=== PATIENT | female | born 1960 | race Caucasian/White ===

== ENCOUNTER 2019-09-16 12:55 | Outpatient (CLI) | payer OTHER, SELFPAY ==
--- NOTE | ~2019-09-16 | MM_ITS ---
EXAMINATION: MM screen LT diag RT w octavia HISTORY: Personal history of right breast cancer TECHNIQUE: Additional 3-D tomosynthesis images of were performed and synthetic 2-D images were genera fanny. CAD analysis was submitted and interpreted. COMPARISON: Serial mammogram and Limited right breast ultrasound examinations dating back to 6 BREAST PARENCHYMAL COMPOSITION: There are scattered areas of fibroglandular density. FINDINGS: Surgical clips and associated density are noted posteriorly in the upper outer quadrant of the right breast. There is mild skin thickening on the right. History of right partial mastectomy for breast malignancy. Status post left breast reduction mammoplasty. No interval suspicious mass or new architectural distortion or skin thickening or retraction of eithe r breast is noted otherwise. IMPRESSION: 1. Status post right partial mastectomy for breast cancer 2. No interval significant new mass or architectural distortion or malignant calcification of either breast is identified BI-RADS Category 2: Benign finding(s). Reviewed, dictated and finalized at location A. IMPRESSION: 1. Status post right partial mastectomy for breast cancer 2. No interval significant new mass or architectural distortion or malignant ca lcification of either breast is identified BI-RADS Category 2: Benign finding(s).
== END 2019-09-16 12:56 | disposition home or self-care (01) ==
PROVIDERS: PCP Internal Medicine; Visit Provider Internal Medicine Hematology & Oncology
DX: Z12.31 Encounter for screening mammogram for malignant neoplasm of breast (principal); I26.99 Other pulmonary embolism without acute cor pulmonale; Z85.3 Personal history of malignant neoplasm of breast
CPT/HCPCS: 77063; 77065; 77067

== ENCOUNTER 2019-09-29 11:06 | Outpatient (CLI) | payer OTHER, SELFPAY ==
[2019-09-29 11:20] LABS: Basophils Percent Auto 0.4 % (0.2-1.2); Eosinophils Absolute Auto 0.1 K/mm3 (0-0.3); Eosinophils Percent Auto 1.6 % (0-4.4); Hematocrit 40.7 % (37.0-47.0); Hemoglobin 12.2 g/dL (12.0-15.0); Immature Granulocyte Absolute 0.03 K/mm3 (0.00-0.031); Immature Granulocyte Percent A 0.4 % (0-0.5); Lymphocytes Absolute Auto 1.59 K/mm3 (0.9-3.2); Lymphocytes Percent Auto 21.8 % (18.3-44.2); Mean Corpuscular Hemoglobin 26.1 pg (26-34); Mean Platelet Volume 8.9 fl (7.4-10.4); Monocytes Absolute Auto 0.5 K/mm3 (0.1-0.6); Monocytes Percent Auto 6.7 % (2.6-8.5); Neutrophils Absolute Auto 5.1 K/mm3 (1.3-6.7); Neutrophils Percent Auto 69.1 % (45.5-73.1); Platelet Count Result 319 k/mm3 (150-375); Red Blood Count 4.68 M/mm3 (4.2-5.4); Red Cell Distribution Width 15.6 % (11.5-14.5); White Blood Count 7.3 K/mm3 (4.5-10.0)
[2019-09-29 12:33] LABS: Alanine Aminotransferase 41 U/L (4-35); Alkaline Phosphatase 111 U/L (38-126); Aspartate Amino Transferase 49 U/L (14-36); Bilirubin,Total 0.4 mg/dL (0.2-1.3); Blood Urea Nitrogen 14 mg/dL (7-17); Calcium 8.9 mg/dL (8.4-10.2); Carbon Dioxide 29 mmol/L (22-30); Chloride 104 mmol/L (98-107); Estimated Glomerular Filt Rate 50; Glucose 134 mg/dL (65-105); Potassium 4.1 mmol/L (3.4-5.0); Sodium 141 mmol/L (137-145)
[2019-10-01 05:09] LABS: CA 27.29 20 U/mL (<38)
== END 2019-09-29 11:07 | disposition home or self-care (01) ==
LOC: ANHLAB 11:10
PROVIDERS: PCP Internal Medicine; Visit Provider Internal Medicine Hematology & Oncology
DX: C50.211 Malignant neoplasm of upper-inner quadrant of right female breast (principal); Z17.0 Estrogen receptor positive status [ER+]
CPT/HCPCS: 36415; 80053; 85025; 86300

== ENCOUNTER 2019-10-08 09:05 | Outpatient (CLI) | payer OTHER, SELFPAY ==
--- NOTE | ~2019-10-08 | US_ITS ---
EXAMINATION:US venous doppler LE LT INDICATION:Lower extremity DVT. TECHNIQUE: Multiple grayscale, color flow and Doppler images of the left lower extremity deep venous systems were obtained and reviewed. COMPARISON:No prior studies for comparison. FINDINGS: The common femoral, superficial femoral and popliteal veins demonstrate normal respiratory variation, augmentation and compressibility. Color flow is also seen within the posterior tibial, pe roneal, greater saphenous and profunda veins. IMPRESSION: 1: No lower extremity deep venous thrombosis. Reviewed, dictated and finalized at location A.
== END 2019-10-08 09:06 | disposition home or self-care (01) ==
LOC: ANHIMG 09:11
PROVIDERS: PCP Internal Medicine; Visit Provider Internal Medicine Hematology & Oncology
DX: I82.4Z2 Acute embolism and thrombosis of unspecified deep veins of left distal lower extremity (principal)
CPT/HCPCS: 93971

== ENCOUNTER 2019-10-21 10:33 | Outpatient (CLI) | payer OTHER, SELFPAY ==
--- NOTE | ~2019-10-21 | CT_ITS ---
EXAMINATION: CTA chest PE protocol DATE: 10/21/2019 11:31 INDICATION: Shortness of breath, history of breast cancer, prior pulmonary embolism TECHNIQUE: Computed tomography angiography (CTA) of the chest was performed with 100 mL Omnipaque-350 intravenous contrast timed to evaluate the pulmonary arteries. Coronal maximum intensity projection 3D-reconstructions were created by the technologist. The dose-length product (DLP) was 894.10 mGy-cm. Automated exposure control and iterative reconstruction technique were employed. COMPARISON: 05/14/2019 FINDINGS: The pulmonary arteries are well-opacified. No acute pulmonary embolism is identified. Some small peripheral filling defects are seen in pulmonary arteries of the right lower lobe, consistent w ith resolving emboli. The lungs are free of acute opacities. There is no pleural effusion or pneumoth orax. No pathologically enlarged thoracic lymph nodes are identified. The heart size is normal. Lumpe ctomy changes are noted in the right breast. Skin thickening of the right breast is consistent with r adiation change. The liver is diffusely low in attenuation when compared with the spleen, consistent with hepatic steatosis. Punctate calcifications in an otherwise normal spleen likely represent healed granulomatous disease. The gallbladder is surgically absent. There is mild thoracic spondylosis. IMPRESSION: 1. No acute pulmonary emboli. Small chronic but resolving emboli in the right lower lobe. 2. Diffuse hepatic steatosis. Reviewed, dictated and finalized at location A. IMPRESSION: 1. No acute pulmonary emboli. Small chronic but resolving emboli in the right l ower lobe. 2. Diffuse hepatic steatosis.
== END 2019-10-21 10:34 | disposition home or self-care (01) ==
LOC: ANHIMG 10:43
PROVIDERS: PCP Internal Medicine; Visit Provider Internal Medicine Hematology & Oncology
DX: I26.99 Other pulmonary embolism without acute cor pulmonale (principal); K76.0 Fatty (change of) liver, not elsewhere classified
CPT/HCPCS: 71275; Q9967

== ENCOUNTER 2020-01-02 13:15 | Outpatient (CLI) | payer OTHER, SELFPAY ==
[2020-01-02 13:31] LABS: Basophils Percent Auto 0.5 % (0.2-1.2); Eosinophils Absolute Auto 0.2 K/mm3 (0-0.3); Hematocrit 38.6 % (37.0-47.0); Hemoglobin 12.1 g/dL (12.0-15.0); Immature Granulocyte Absolute 0.02 K/mm3 (0.00-0.031); Immature Granulocyte Percent A 0.2 % (0-0.5); Lymphocytes Absolute Auto 2.03 K/mm3 (0.9-3.2); Lymphocytes Percent Auto 24.3 % (18.3-44.2); Mean Corpuscular HGB Conc 31.3 g/dl (32-36); Mean Corpuscular Hemoglobin 26.7 pg (26-34); Mean Corpuscular Volume 85.2 fl (80-100); Mean Platelet Volume 8.7 fl (7.4-10.4); Monocytes Absolute Auto 0.8 K/mm3 (0.1-0.6); Monocytes Percent Auto 10.1 % (2.6-8.5); Neutrophils Absolute Auto 5.3 K/mm3 (1.3-6.7); Neutrophils Percent Auto 62.9 % (45.5-73.1); Platelet Count Result 327 k/mm3 (150-375); Red Blood Count 4.53 M/mm3 (4.2-5.4); Red Cell Distribution Width 14.8 % (11.5-14.5); White Blood Count 8.4 K/mm3 (4.5-10.0)
[2020-01-02 16:03] LABS: Alanine Aminotransferase 56 U/L (4-35); Alkaline Phosphatase 109 U/L (38-126); Anion Gap 12.4 mmol/L (7-16); Aspartate Amino Transferase 62 U/L (14-36); Bilirubin,Total 0.3 mg/dL (0.2-1.3); Blood Urea Nitrogen 12 mg/dL (7-17); Calcium 8.9 mg/dL (8.4-10.2); Carbon Dioxide 31 mmol/L (22-30); Chloride 101 mmol/L (98-107); Estimated Glomerular Filt Rate 56; Glucose 84 mg/dL (65-105); Potassium 4.4 mmol/L (3.4-5.0); Sodium 140 mmol/L (137-145)
[2020-01-08 13:51] LABS: CA 27.29 19 U/mL (<38)
== END 2020-01-02 13:16 | disposition home or self-care (01) ==
PROVIDERS: PCP Internal Medicine; Visit Provider Internal Medicine Hematology & Oncology
DX: C50.411 Malignant neoplasm of upper-outer quadrant of right female breast (principal); Z17.0 Estrogen receptor positive status [ER+]
CPT/HCPCS: 36415; 80053; 85025; 86300

== ENCOUNTER 2020-04-09 11:44 | Outpatient (CLI) | payer OTHER, SELFPAY ==
[2020-04-09 11:57] LABS: Basophils Percent Auto 0.5 % (0.2-1.2); Eosinophils Absolute Auto 0.2 K/mm3 (0-0.3); Eosinophils Percent Auto 1.9 % (0-4.4); Hematocrit 39.2 % (37.0-47.0); Hemoglobin 12.2 g/dL (12.0-15.0); Immature Granulocyte Absolute 0.03 K/mm3 (0.00-0.031); Immature Granulocyte Percent A 0.4 % (0-0.5); Lymphocytes Absolute Auto 1.69 K/mm3 (0.9-3.2); Lymphocytes Percent Auto 21.8 % (18.3-44.2); Mean Corpuscular HGB Conc 31.1 g/dl (32-36); Mean Corpuscular Hemoglobin 26.8 pg (26-34); Mean Platelet Volume 9.4 fl (7.4-10.4); Monocytes Absolute Auto 0.5 K/mm3 (0.1-0.6); Monocytes Percent Auto 6.3 % (2.6-8.5); Neutrophils Absolute Auto 5.4 K/mm3 (1.3-6.7); Neutrophils Percent Auto 69.1 % (45.5-73.1); Platelet Count Result 306 k/mm3 (150-375); Red Blood Count 4.56 M/mm3 (4.2-5.4); Red Cell Distribution Width 14.9 % (11.5-14.5); White Blood Count 7.8 K/mm3 (4.5-10.0)
[2020-04-09 16:14] LABS: Alanine Aminotransferase 56 U/L (4-35); Albumin Level 3.9 g/dL (3.5-5.1); Alkaline Phosphatase 119 U/L (38-126); Anion Gap 11 mmol/L (8-16); Aspartate Amino Transferase 56 U/L (14-36); Bilirubin,Total 0.4 mg/dL (0.2-1.3); Blood Urea Nitrogen 18 mg/dL (7-17); Carbon Dioxide 29 mmol/L (22-30); Chloride 104 mmol/L (98-107); Estimated Glomerular Filt Rate 56; Glucose 148 mg/dL (65-105); Potassium 4.1 mmol/L (3.4-5.0); Sodium 144 mmol/L (137-145)
[2020-04-15 06:40] LABS: CA 27.29 19 U/mL (<38)
== END 2020-04-09 11:45 | disposition home or self-care (01) ==
LOC: ANHLAB 11:45
PROVIDERS: PCP Internal Medicine; Visit Provider Internal Medicine Hematology & Oncology
DX: C50.411 Malignant neoplasm of upper-outer quadrant of right female breast (principal); Z17.0 Estrogen receptor positive status [ER+]
CPT/HCPCS: 36415; 80053; 85025; 86300

== ENCOUNTER → 2020-04-29 07:38 | Outpatient (CLI) | payer OTHER, SELFPAY ==
--- NOTE | ~2020-04-29 | MMUS_ITS ---
EXAMINATION: MM diagnostic ambrose RT w octavia, US breast RT limited HISTORY: History of right breast cancer TECHNIQUE: Craniocaudal, mediolateral, and mediolateral oblique 3-D tomosynthesis images of the right breast were performed and synthetic 2-D images were generated. CAD analysis was submitted and interp reted. High resolution limited right breast ultrasound was performed. COMPARISON: 09/10/2018, 08/23/2018, 08/22/2017, 08/07/2017 BREAST PARENCHYMAL COMPOSITION: The breasts are almost entirely fatty. FINDINGS: MAMMOGRAPHIC FINDINGS: Lumpectomy changes are present in the upper outer quadrant of the breast. There is an asymmetry in th e far posterior third of the outer breast seen 12 cm from the nipple on the mediolateral oblique view . No suspicious calcification is identified. ULTRASOUND: Dense shadowing is seen at the area of patient's lumpectomy. A 2.8 x 1.0 cm oval, circumscribed, para llel, hypoechoic area at the 12:00 location 3 cm from the nipple appears to represent postoperative c hange. There is a 10 mm x 5 mm oval, circumscribed, parallel, hypoechoic mass at the 12:00 location 1 cm from the nipple which likely reflects a small area of fat necrosis seen on the mammogram. IMPRESSION: 1. Asymmetry in the far posterior third of the outer left breast seen only on the mediolateral obliqu e view. Finding is somewhat more dense than would be expected for normal postoperative change and cou ld reflect residual malignancy. 2. Biopsy is recommended. However, MRI could be performed first to assess for residual malignancy bianca andra postoperative change. BI-RADS category 4, suspicious findings. Reviewed, dictated and finalized at location A. MACHINE OPERATOR IMPRESSION: 1. Asymmetry in the far posterior third of the outer left breast seen only on t he mediolateral oblique view. Finding is somewhat more dense than would be expe cted for normal postoperative change and could reflect residual malignancy. 2. Biopsy is recommended. However, MRI could be performed first to assess for r esidual malignancy versus postoperative change. BI-RADS category 4, suspicious findings.
== END ==
PROVIDERS: PCP Internal Medicine; Visit Provider Nurse Practitioner Adult Health
DX: C50.211 Malignant neoplasm of upper-inner quadrant of right female breast (principal); Z17.0 Estrogen receptor positive status [ER+]; R92.8 Other abnormal and inconclusive findings on diagnostic imaging of breast
CPT/HCPCS: 76642; 77061; 77065; G0279

== ENCOUNTER 2020-07-09 11:17 | Outpatient (CLI) | payer OTHER, SELFPAY ==
[2020-07-09 11:32] LABS: Basophils Percent Auto 0.5 % (0.2-1.2); Eosinophils Absolute Auto 0.1 K/mm3 (0-0.3); Eosinophils Percent Auto 1.7 % (0-4.4); Hematocrit 40.2 % (37.0-47.0); Hemoglobin 12.5 g/dL (12.0-15.0); Immature Granulocyte Absolute 0.03 K/mm3 (0.00-0.031); Immature Granulocyte Percent A 0.4 % (0-0.5); Lymphocytes Absolute Auto 1.62 K/mm3 (0.9-3.2); Lymphocytes Percent Auto 20.2 % (18.3-44.2); Mean Corpuscular HGB Conc 31.1 g/dl (32-36); Mean Corpuscular Hemoglobin 26.8 pg (26-34); Mean Corpuscular Volume 86.1 fl (80-100); Mean Platelet Volume 9.3 fl (7.4-10.4); Monocytes Absolute Auto 0.6 K/mm3 (0.1-0.6); Monocytes Percent Auto 7.9 % (2.6-8.5); Neutrophils Absolute Auto 5.6 K/mm3 (1.3-6.7); Neutrophils Percent Auto 69.3 % (45.5-73.1); Platelet Count Result 343 k/mm3 (150-375); Red Blood Count 4.67 M/mm3 (4.2-5.4); Red Cell Distribution Width 14.6 % (11.5-14.5)
[2020-07-09 13:37] LABS: Alanine Aminotransferase 37 U/L (4-35); Albumin Level 3.9 g/dL (3.5-5.1); Alkaline Phosphatase 106 U/L (38-126); Anion Gap 6 mmol/L (8-16); Aspartate Amino Transferase 45 U/L (14-36); Bilirubin,Total 0.4 mg/dL (0.2-1.3); Blood Urea Nitrogen 13 mg/dL (7-17); Calcium 8.9 mg/dL (8.4-10.2); Carbon Dioxide 30 mmol/L (22-30); Chloride 104 mmol/L (98-107); Estimated Glomerular Filt Rate 56; Glucose 151 mg/dL (65-105); Potassium 4.1 mmol/L (3.4-5.0); Sodium 140 mmol/L (137-145)
[2020-07-14 06:47] LABS: CA 27.29 18 U/mL (<38)
== END 2020-07-09 11:18 | disposition home or self-care (01) ==
LOC: ANHLAB 11:19
PROVIDERS: PCP Internal Medicine; Visit Provider Internal Medicine Hematology & Oncology
DX: C50.211 Malignant neoplasm of upper-inner quadrant of right female breast (principal); Z17.0 Estrogen receptor positive status [ER+]; C50.411 Malignant neoplasm of upper-outer quadrant of right female breast
CPT/HCPCS: 36415; 80053; 85025; 86300

== ENCOUNTER 2020-09-08 10:55 | Outpatient (CLI) | payer OTHER, SELFPAY ==
[2020-09-08 12:04] LABS: SARS-CoV-2 Ag Negative (Negative)
== END 2020-09-08 10:56 | disposition home or self-care (01) ==
LOC: CHSLAB 10:57
PROVIDERS: PCP Internal Medicine; Visit Provider Internal Medicine
DX: J06.9 Acute upper respiratory infection, unspecified (principal); Z20.822 Contact with and (suspected) exposure to COVID-19
CPT/HCPCS: 87426; C9803

== ENCOUNTER 2020-10-01 12:15 | Outpatient (CLI) | payer OTHER, SELFPAY ==
[2020-10-01 12:38] LABS: Basophils Percent Auto 0.5 % (0.2-1.2); Eosinophils Absolute Auto 0.1 K/mm3 (0-0.3); Eosinophils Percent Auto 1.4 % (0-4.4); Hemoglobin 11.8 g/dL (12.0-15.0); Immature Granulocyte Absolute 0.04 K/mm3 (0.00-0.031); Immature Granulocyte Percent A 0.5 % (0-0.5); Lymphocytes Absolute Auto 2.23 K/mm3 (0.9-3.2); Lymphocytes Percent Auto 26.2 % (18.3-44.2); Mean Corpuscular HGB Conc 31.1 g/dl (32-36); Mean Corpuscular Hemoglobin 26.9 pg (26-34); Mean Corpuscular Volume 86.8 fl (80-100); Mean Platelet Volume 8.9 fl (7.4-10.4); Monocytes Absolute Auto 0.7 K/mm3 (0.1-0.6); Monocytes Percent Auto 8.1 % (2.6-8.5); Neutrophils Absolute Auto 5.4 K/mm3 (1.3-6.7); Neutrophils Percent Auto 63.3 % (45.5-73.1); Platelet Count Result 305 k/mm3 (150-375); Red Blood Count 4.38 M/mm3 (4.2-5.4); Red Cell Distribution Width 14.5 % (11.5-14.5); White Blood Count 8.5 K/mm3 (4.5-10.0)
[2020-10-01 14:32] LABS: Alanine Aminotransferase 26 U/L (4-35); Albumin Level 3.7 g/dL (3.5-5.1); Alkaline Phosphatase 91 U/L (38-126); Anion Gap 5 mmol/L (8-16); Aspartate Amino Transferase 38 U/L (14-36); Bilirubin,Total 0.2 mg/dL (0.2-1.3); Blood Urea Nitrogen 18 mg/dL (7-17); Calcium 8.5 mg/dL (8.4-10.2); Carbon Dioxide 31 mmol/L (22-30); Chloride 106 mmol/L (98-107); Estimated Glomerular Filt Rate 56; Glucose 97 mg/dL (65-105); Potassium 4.5 mmol/L (3.4-5.0); Sodium 142 mmol/L (137-145)
[2020-10-05 05:32] LABS: CA 27.29 15 U/mL (<38)
== END 2020-10-01 12:16 | disposition home or self-care (01) ==
LOC: ANHLAB 12:17
PROVIDERS: PCP Internal Medicine; Visit Provider Internal Medicine Hematology & Oncology
DX: C50.211 Malignant neoplasm of upper-inner quadrant of right female breast (principal); Z17.0 Estrogen receptor positive status [ER+]
CPT/HCPCS: 36415; 80053; 85025; 86300

== ENCOUNTER 2020-12-14 12:45 | Outpatient (CLI) | payer OTHER, SELFPAY ==
--- NOTE | ~2020-12-14 | MM_ITS ---
EXAMINATION: MM diagnostic ambrose BI w octavia HISTORY: History of right breast cancer TECHNIQUE: Craniocaudal, mediolateral, and mediolateral oblique 3-D tomosynthesis images of the breas ts were performed and synthetic 2-D images were generated. CAD analysis was submitted and interpreted . COMPARISON: Prior mammograms dating back to 03/03/2016 BREAST PARENCHYMAL COMPOSITION: The breasts are almost entirely fatty. FINDINGS: Lumpectomy changes are present in the right breast. There are changes of bilateral reductio n mammoplasty. There is no evidence of suspicious mass, calcification, or architectural distortion i n either breast to suggest malignancy. There has been no suspicious interval change. IMPRESSION: 1. No mammographic evidence of malignancy. 2. Recommend routine screening mammography in one year. BI-RADS Category 2: Benign finding(s). Reviewed, dictated and finalized at location A.
== END 2020-12-14 12:46 | disposition home or self-care (01) ==
LOC: ANHIMG 12:52
PROVIDERS: Visit Provider Internal Medicine Hematology & Oncology
DX: C50.211 Malignant neoplasm of upper-inner quadrant of right female breast (principal); Z17.0 Estrogen receptor positive status [ER+]
CPT/HCPCS: 77062; 77066; G0279

== ENCOUNTER 2021-01-12 12:00 | Outpatient (CLI) | payer OTHER, SELFPAY ==
[2021-01-12 12:37] LABS: Basophils Percent Auto 0.4 % (0.2-1.2); Eosinophils Absolute Auto 0.1 K/mm3 (0-0.3); Eosinophils Percent Auto 1.1 % (0-4.4); Hematocrit 38.5 % (37.0-47.0); Hemoglobin 12.1 g/dL (12.0-15.0); Immature Granulocyte Absolute 0.02 K/mm3 (0.00-0.031); Immature Granulocyte Percent A 0.2 % (0-0.5); Lymphocytes Absolute Auto 1.97 K/mm3 (0.9-3.2); Lymphocytes Percent Auto 24.3 % (18.3-44.2); Mean Corpuscular HGB Conc 31.4 g/dl (32-36); Mean Corpuscular Hemoglobin 27.8 pg (26-34); Mean Corpuscular Volume 88.5 fl (80-100); Monocytes Absolute Auto 0.6 K/mm3 (0.1-0.6); Monocytes Percent Auto 6.9 % (2.6-8.5); Neutrophils Absolute Auto 5.5 K/mm3 (1.3-6.7); Neutrophils Percent Auto 67.1 % (45.5-73.1); Platelet Count Result 331 k/mm3 (150-375); Red Blood Count 4.35 M/mm3 (4.2-5.4); Red Cell Distribution Width 13.7 % (11.5-14.5); White Blood Count 8.1 K/mm3 (4.5-10.0)
[2021-01-12 16:50] LABS: Alanine Aminotransferase 67 U/L (4-35); Albumin Level 3.6 g/dL (3.5-5.1); Alkaline Phosphatase 98 U/L (38-126); Anion Gap 9 mmol/L (8-16); Aspartate Amino Transferase 75 U/L (14-36); Bilirubin,Total 0.4 mg/dL (0.2-1.3); Blood Urea Nitrogen 15 mg/dL (7-17); Carbon Dioxide 27 mmol/L (22-30); Chloride 106 mmol/L (98-107); Estimated Glomerular Filt Rate 50; Glucose 125 mg/dL (65-110); Potassium 3.7 mmol/L (3.4-5.0); Sodium 142 mmol/L (137-145)
[2021-01-15 05:18] LABS: CA 15-3 14 U/mL (<32)
== END 2021-01-12 12:01 | disposition home or self-care (01) ==
PROVIDERS: Visit Provider Internal Medicine Hematology & Oncology
DX: C50.211 Malignant neoplasm of upper-inner quadrant of right female breast (principal); Z17.0 Estrogen receptor positive status [ER+]
CPT/HCPCS: 36415; 80053; 85025; 86300

== ENCOUNTER 2021-07-11 09:34 | Outpatient (CLI) | payer OTHER, SELFPAY ==
[2021-07-11 10:01] LABS: Basophils Absolute Auto 0.1 K/mm3 (0.0-0.1); Basophils Percent Auto 0.5 % (0.2-1.2); Eosinophils Absolute Auto 0.1 K/mm3 (0-0.3); Eosinophils Percent Auto 1.5 % (0-4.4); Hematocrit 40.2 % (37.0-47.0); Hemoglobin 12.1 g/dL (12.0-15.0); Immature Granulocyte Absolute 0.04 K/mm3 (0.00-0.031); Immature Granulocyte Percent A 0.4 % (0-0.5); Lymphocytes Absolute Auto 1.99 K/mm3 (0.9-3.2); Lymphocytes Percent Auto 20.7 % (18.3-44.2); Mean Corpuscular HGB Conc 30.1 g/dl (32-36); Mean Corpuscular Hemoglobin 27.4 pg (26-34); Mean Platelet Volume 9.3 fl (7.4-10.4); Monocytes Absolute Auto 0.7 K/mm3 (0.1-0.6); Neutrophils Absolute Auto 6.7 K/mm3 (1.3-6.7); Neutrophils Percent Auto 69.9 % (45.5-73.1); Platelet Count Result 323 k/mm3 (150-375); Red Blood Count 4.42 M/mm3 (4.2-5.4); Red Cell Distribution Width 14.3 % (11.5-14.5); White Blood Count 9.6 K/mm3 (4.5-10.0)
[2021-07-11 10:34] LABS: Alanine Aminotransferase 77 U/L (4-35); Albumin Level 3.9 g/dL (3.5-5.1); Alkaline Phosphatase 118 U/L (38-126); Anion Gap 3 mmol/L (8-16); Aspartate Amino Transferase 102 U/L (14-36); Bilirubin,Total 0.2 mg/dL (0.2-1.3); Blood Urea Nitrogen 13 mg/dL (7-17); Calcium 8.6 mg/dL (8.4-10.2); Carbon Dioxide 33 mmol/L (22-30); Chloride 104 mmol/L (98-107); Estimated Glomerular Filt Rate > 60; Glucose 103 mg/dL (65-110); Potassium 4.2 mmol/L (3.4-5.0); Sodium 140 mmol/L (137-145)
[2021-07-14 06:43] LABS: CA 15-3 13 U/mL (<32)
== END 2021-07-11 09:35 | disposition home or self-care (01) ==
LOC: ANHLAB 09:35
PROVIDERS: PCP Internal Medicine; Visit Provider Internal Medicine Hematology & Oncology
DX: C50.211 Malignant neoplasm of upper-inner quadrant of right female breast (principal); Z17.0 Estrogen receptor positive status [ER+]
CPT/HCPCS: 36415; 80053; 85025; 86300

== ENCOUNTER 2021-08-16 11:45 | Outpatient (CLI) | payer OTHER, SELFPAY ==
[2021-08-16 12:54] LABS: D Dimer 0.78 ug/mL (<0.48)
== END 2021-08-16 11:46 | disposition home or self-care (01) ==
LOC: ANHLAB 11:46
PROVIDERS: PCP Internal Medicine; Visit Provider Internal Medicine Hematology & Oncology
DX: I82.4Z2 Acute embolism and thrombosis of unspecified deep veins of left distal lower extremity (principal)
CPT/HCPCS: 36415; 85380

== ENCOUNTER 2021-08-25 13:14 | Outpatient (CLI) | payer OTHER, SELFPAY ==
--- NOTE | ~2021-08-25 | CT_ITS ---
EXAMINATION: CTA chest PE protocol DATE: 08/25/2021 13:49 INDICATION: Dyspnea. TECHNIQUE: Computed tomography angiography (CTA) of the chest was performed with 100 mL Omnipaque-350 intravenous contrast timed to evaluate the pulmonary arteries. Coronal maximum intensity projection 3D-reconstructions were created by the technologist. Automated exposure control and iterative reconst ruction technique were employed. The dose-length product was 1066.05 mGy-cm. COMPARISON: Chest CT 10/21/2019, 05/14/19 FINDINGS: There is no pneumonia or pleural effusion. A calcified left lung nodule and calcified left hilar and mediastinal lymph nodes are consistent with old granulomatous disease. The heart size is no rmal. No pericardial effusion. There is no pulmonary embolus. There is a small sliding hiatal hernia. Calcifications in the spleen are consistent with old granulomatous disease. There are changes of cho lecystectomy. There are surgical changes in right breast. There is increased soft tissue at the media l superior aspect of the surgical site. There is mild thoracic spondylosis. IMPRESSION: 1. No pulmonary embolus. 2. Increased soft tissue at the medial superior aspect of the surgical site in the right breast. A di agnostic mammogram is recommended. Reviewed, dictated and finalized at location A. IMPRESSION: 1. No pulmonary embolus. 2. Increased soft tissue at the medial superior aspect of the surgical site in the right breast. A diagnostic mammogram is recommended.
[2021-08-25 13:45] LABS: Estimated Glomerular Filt Rate > 60
== END 2021-08-25 13:15 | disposition home or self-care (01) ==
LOC: ANHIMG 13:18
PROVIDERS: PCP Internal Medicine; Visit Provider Internal Medicine Hematology & Oncology
DX: R06.00 Dyspnea, unspecified (principal)
CPT/HCPCS: 71275; Q9967

== ENCOUNTER 2022-01-17 14:02 | Outpatient (CLI) | payer OTHER, SELFPAY ==
--- NOTE | ~2022-01-17 | MM_ITS ---
EXAMINATION: MM screening [facility] BI w octavia HISTORY: Screening mammogram TECHNIQUE: Craniocaudal and mediolateral oblique 3-D tomosynthesis images were obtained and synthetic 2-D images were generated. CAD analysis was submitted and interpreted. COMPARISON: 12/14/2020, 04/29/2020, 09/16/2019, 09/10/2018 BREAST PARENCHYMAL COMPOSITION: The breasts are almost entirely fatty. FINDINGS: Again noted are lumpectomy changes of the right breast and changes of bilateral reduction m ammoplasty. There is no suspicious mass, calcification, or architectural distortion to suggest malign florence in either breast. There has been no suspicious interval change. IMPRESSION: 1. No mammographic evidence of malignancy. 2. Recommend routine screening mammography in one year. BI-RADS Category 2: Benign finding(s). Reviewed, dictated and finalized at location A.
== END 2022-01-17 14:03 | disposition home or self-care (01) ==
PROVIDERS: PCP Internal Medicine; Visit Provider Internal Medicine Hematology & Oncology
DX: Z12.31 Encounter for screening mammogram for malignant neoplasm of breast (principal)
CPT/HCPCS: 77063; 77067

== ENCOUNTER 2022-02-21 13:43 | Outpatient (CLI) | payer OTHER, SELFPAY ==
[2022-02-21 14:20] LABS: Basophils Percent Auto 0.3 % (0.2-1.2); Eosinophils Absolute Auto 0.1 K/mm3 (0-0.3); Eosinophils Percent Auto 1.3 % (0-4.4); Hematocrit 37.7 % (37.0-47.0); Hemoglobin 11.2 g/dL (12.0-15.0); Immature Granulocyte Absolute 0.04 K/mm3 (0.00-0.031); Immature Granulocyte Percent A 0.4 % (0-0.5); Lymphocytes Absolute Auto 1.83 K/mm3 (0.9-3.2); Lymphocytes Percent Auto 18.3 % (18.3-44.2); Mean Corpuscular HGB Conc 29.7 g/dl (32-36); Mean Corpuscular Hemoglobin 24.7 pg (26-34); Mean Platelet Volume 9.1 fl (7.4-10.4); Monocytes Absolute Auto 0.7 K/mm3 (0.1-0.6); Monocytes Percent Auto 7.2 % (2.6-8.5); Neutrophils Absolute Auto 7.3 K/mm3 (1.3-6.7); Neutrophils Percent Auto 72.5 % (45.5-73.1); Platelet Count Result 374 k/mm3 (150-375); Red Blood Count 4.54 M/mm3 (4.2-5.4); Red Cell Distribution Width 15.9 % (11.5-14.5)
[2022-02-21 16:34] LABS: Alanine Aminotransferase 47 U/L (6-35); Alkaline Phosphatase 133 U/L (38-126); Anion Gap 9 mmol/L (8-16); Aspartate Amino Transferase 62 U/L (14-36); Bilirubin,Total 0.3 mg/dL (0.2-1.3); Blood Urea Nitrogen 13 mg/dL (7-17); Calcium 8.7 mg/dL (8.4-10.2); Carbon Dioxide 30 mmol/L (22-30); Chloride 102 mmol/L (98-107); Estimated Glomerular Filt Rate 56; Glucose 104 mg/dL (65-110); Potassium 3.3 mmol/L (3.4-5.0); Sodium 141 mmol/L (137-145)
[2022-02-25 06:03] LABS: CA 15-3 15 U/mL (<32)
== END 2022-02-21 13:44 | disposition home or self-care (01) ==
LOC: ANHLAB 13:44
PROVIDERS: PCP Internal Medicine; Visit Provider Internal Medicine Hematology & Oncology
DX: C50.411 Malignant neoplasm of upper-outer quadrant of right female breast (principal); Z17.0 Estrogen receptor positive status [ER+]
CPT/HCPCS: 36415; 80053; 85025; 86300

== ENCOUNTER 2022-04-19 10:30 | Emergency (ER) | payer OTHER, SELFPAY ==
[2022-04-19 10:39] VITALS: BP 143/98; PULSE 95; RESP 20; TEMP 36.3; O2SAT 98
--- NOTE | 2022-04-19 10:39 | ED.URI ---
HPI - URI/Sore Throat General Chief Complaint: Upper Respiratory Infection Stated Complaint: Cough Time Seen by Provider: 04/19/22 10:55 Source: patient and RN notes reviewed Mode of arrival: ambulatory Limitations: no limitations History of Present Illness HPI Narrative: 62-year-old female presents with concern for dry cough. She reports 6 day history of cough without any shortness of breath. She reports history of bronchitis. She reports that the cough is tickling in nature. She reports trying multiple gfyn-fvq-uozthke cough remedies without relief. She denies fever, body aches, chills, sweats, sore throat, nasal congestion, rhinorrhea MD elicited complaint: cough Related Data Home Medications Medication Instructions Recorded Confirmed temehzeu-jpv-ilvud acid 0.4 1 tablet PO DAILY 05/03/19 04/19/22 mg-lycopene 300 mcg-lutein 250 mcg tablet (Centrum Silver) budesonide-formoterol HFA 160 2 puff inhalation Q12H 02/27/22 04/19/22 mcg-4.5 mcg/actuation aerosol inhaler (Symbicort) cholecalciferol (vitamin D3) 125 125 mcg PO DAILY 02/27/22 04/19/22 mcg (5,000 unit) capsule omeprazole 20 mg capsule,delayed 20 mg PO DAILY 02/27/22 04/19/22 release Allergies Allergy/AdvReac Type Severity Reaction Status Date / Time No Known Allergies Allergy Verified 04/19/22 10:36 Review of Systems Review of Systems: CONSTITUTIONAL: Denies malaise, chills, sweats, or fever. EYES: Denies visual changes, redness, or discharge. ENT: Denies rhinorrhea, congestion, sinus pain, otalgia and sore throat. CARDIOVASCULAR: Denies chest pain, palpitations, or edema. RESPIRATORY: Reports dry cough. Denies dyspnea. GASTROINTESTINAL: Denies abdominal pain, nausea, vomiting, diarrhea SKIN: Denies rash or itching. MUSCULOSKELETAL: Denies myalgia. NEUROLOGIC: Denies headache. All systems reviewed & are unremarkable except as noted in HPI and below PMFSH Past Medical History Medical History (Updated 04/19/22 @ 11:02 by Aurea Rossi NP) Asthma Breast cancer History of blood clots History of DVT (deep vein thrombosis) Hypertension Insomnia Migraine Obesity Periodic health assessment, general screening, adult Peroneal tendonitis of left lower extremity Pulmonary emboli Shortness of breath Sprain of left foot Vision abnormalities Vitamin D deficiency Surgical History Surgical History History of breast surgery History of carpal tunnel release History of knee surgery Family History Family History Other Diabetes mellitus Family history of arthritis Family history of malignant neoplasm Hypertension Social History Social History (Updated 02/27/22 @ 16:05 by Karla Bernal MA) Smoking packs per day: 0.75 Smoking cigarettes per day: 15.0 Years smoked: 30 Smoking pack-years: 22.50 Smoking status: Former smoker Tobacco type: cigarettes Smoking end date: 06/11/16 Alcohol intake: never Substance use: never Gender identity (if verbalized by the patient): Female Comments At time of signature, agree with nursing past medical, surgical, social and family history. There is no relevant family history pertinent to the presenting complaint Exam Narrative: GENERAL: Well-appearing, well-nourished, and in no acute distress. HEAD: Normocephalic EYES: PERRLA, conjunctivae clear ENT: Nares clear. Mucous membranes moist. TM pearly benavides with dull light reflex bilaterally; no tragal tenderness. Oropharynx not erythematous without lesions. Tonsils not enlarged and without exudate, no drooling, no hoarseness, no trismus, uvula midline. NECK: Supple. No lymphadenopathy CHEST: Clear to auscultation, breath sounds equal. No wheezing, rhonchi, rales, or stridor. No respiratory distress, speaks in full sentences. HEART: Regular rate and rhythm. No murmur heard. SKIN: Warm, dry, no rash. NEURO: Alert and
== END 2022-04-19 11:16 | disposition home or self-care (01) ==
PROVIDERS: Emergency Provider Nurse Practitioner; PCP Physician Assistant Medical
DX: J40 Bronchitis, not specified as acute or chronic (principal); Z87.891 Personal history of nicotine dependence; J45.909 Unspecified asthma, uncomplicated; I10 Essential (primary) hypertension; E66.9 Obesity, unspecified; Z68.42 Body mass index [BMI] 45.0-49.9, adult; E55.9 Vitamin D deficiency, unspecified; Z85.3 Personal history of malignant neoplasm of breast; Z86.718 Personal history of other venous thrombosis and embolism; Z86.711 Personal history of pulmonary embolism
CPT/HCPCS: 99213; G0463

== ENCOUNTER 2022-09-04 11:29 | Outpatient (CLI) | payer OTHER, SELFPAY ==
[2022-09-04 11:42] LABS: Basophils Absolute Auto 0.1 K/mm3 (0.0-0.1); Basophils Percent Auto 0.5 % (0.2-1.2); Eosinophils Absolute Auto 0.2 K/mm3 (0-0.3); Eosinophils Percent Auto 1.4 % (0-4.4); Hematocrit 39.2 % (37.0-47.0); Hemoglobin 11.6 g/dL (12.0-15.0); Immature Granulocyte Absolute 0.06 K/mm3 (0.00-0.031); Immature Granulocyte Percent A 0.5 % (0-0.5); Lymphocytes Absolute Auto 2.26 K/mm3 (0.9-3.2); Lymphocytes Percent Auto 20.3 % (18.3-44.2); Mean Corpuscular HGB Conc 29.6 g/dl (32-36); Mean Corpuscular Hemoglobin 24.9 pg (26-34); Mean Corpuscular Volume 84.1 fl (80-100); Mean Platelet Volume 9.2 fl (7.4-10.4); Monocytes Absolute Auto 0.8 K/mm3 (0.1-0.6); Monocytes Percent Auto 7.1 % (2.6-8.5); Neutrophils Absolute Auto 7.8 K/mm3 (1.3-6.7); Neutrophils Percent Auto 70.2 % (45.5-73.1); Platelet Count Result 403 k/mm3 (150-375); Red Blood Count 4.66 M/mm3 (4.2-5.4); Red Cell Distribution Width 16.1 % (11.5-14.5); White Blood Count 11.1 K/mm3 (4.5-10.0)
[2022-09-04 11:48] LABS: Hypochromasia 1+ (NORMAL); Platelet Estimate Increased (Adequate); Schistocytes None Seen (NORMAL)
[2022-09-04 13:23] LABS: Alanine Aminotransferase 33 U/L (6-35); Albumin Level 4.2 g/dL (3.5-5.1); Alkaline Phosphatase 137 U/L (38-126); Anion Gap 9 mmol/L (8-16); Aspartate Amino Transferase 44 U/L (14-36); Bilirubin,Total 0.4 mg/dL (0.2-1.3); Blood Urea Nitrogen 12 mg/dL (7-17); Calcium 8.6 mg/dL (8.4-10.2); Carbon Dioxide 33 mmol/L (22-30); Chloride 102 mmol/L (98-107); Estimated Glomerular Filt Rate > 60; Glucose 105 mg/dL (65-110); Sodium 144 mmol/L (137-145)
[2022-09-07 04:26] LABS: CA 15-3 15 U/mL (<32)
== END 2022-09-04 11:30 | disposition home or self-care (01) ==
LOC: ANHLAB 11:31
PROVIDERS: PCP Physician Assistant Medical; Visit Provider Internal Medicine Hematology & Oncology
DX: C50.411 Malignant neoplasm of upper-outer quadrant of right female breast (principal); Z17.0 Estrogen receptor positive status [ER+]
CPT/HCPCS: 36415; 80053; 85025; 86300

== ENCOUNTER 2022-10-26 01:20 | Day surgery (SDC) | payer OTHER, SELFPAY ==
[2022-10-19 15:52] VITALS: BMI 54.8
--- NOTE | 2022-10-19 16:00 | PC.NURSE ---
Report to the Outpatient Waiting Room, entrance under the green pavilion located off [facility], at time 0600 on date 10/26/22. Planned Procedure Time: 0730. Time changes happen often and if your time is changed the preop area will call you the afternoon before. - You and your visitor will be asked to self-screen and do not enter if you have any COVID symptoms. - A mask is optional within the hospital at this time. Patients may have clear liquids (water, carbonated beverages, clear teas, apple juice) until 3 hours prior to surgery with a maximum of 20 ounces. - No food from midnight until time of surgery Take the following medications with a SIP of water the morning of surgery: SERTRALINE DO NOT STOP ANY OF YOUR OTHER PRESCRIPTION MEDICATIONS PRIOR TO SURGERY EXCEPT THE FOLLOWING Medications to discontinue per physician: VITAMINS/SUPPLEMENTS Date to take last dose: 10/22/22 LAST DOSE XARELTO 10/20 (PER DR. FAULKNER & PT) Please no make-up, nail slovenian, hairspray, perfume, deodorant, or body powder the day of surgery. No jewelry (including any body piercings) or valuables the day of surgery, leave them at home. Please take a shower or bath the night before, or the morning of, surgery with an antibacterial soap. Wear comfortable, loose fitting clothing. - Jewelry must be removed prior to entering the operating room. Rings and piercings that are not removed may be cut off. - The hospital will not accept responsibility for valuables. - Please leave all valuables, including medications, at home the day of surgery. If you are going home after surgery, a licensed armored truck driver must drive you home. - NO public transportation without another adult if you receive anesthesia. - We recommend that an adult stay with you for 24 hours following discharge. - We also recommend that you do not drive, make important decision, drink alcoholic beverages, or take any drugs that were not prescribed by your health care provider for at least 24 hours after your discharge time. Follow any additional instructions given to you from your surgeon. If you or anyone in your household have experienced Covid symptoms in the past week, please notify your surgeon or the nurse liaison at the phone number below for possible testing. Telephone instructions given to PT - KEVIN IYER and asked if any additional questions and then verbalized understanding. Patient advised to call surgeon office or pre surgery nurse liaison [phone] if any additional questions.
--- NOTE | 2022-10-25 13:57 | WPDANESEPPF ---
Anes - Initial Pre Proc Eval Procedure: Operation Date: 10/26/22 07:30 Proposed Procedures p Left Foot Plantar Fasciotomy - Portillo Knox MD Date/Time: 10/25/22 13:57 Surgeon: Portillo Knox MD Pre Op Diagnosis: Lt Plantar Fasciitis / Heel Pain Patient Data Age: 62 Gender: F Height: 1.68 m Weight: 154.22 kg Allergies Allergy/AdvReac Type Severity Reaction Status Date / Time No Known Allergies Allergy Verified 10/26/22 06:12 Home Medications Medication Instructions Recorded Confirmed Type avmgsogd-hpw-zjdgy acid 0.4 1 tablet PO DAILY 05/03/19 10/26/22 History mg-lycopene 300 mcg-lutein 250 mcg tablet (Centrum Silver) cholecalciferol (vitamin D3) 125 125 mcg PO DAILY 02/27/22 10/26/22 History mcg (5,000 unit) capsule omeprazole 20 mg capsule,delayed 20 mg PO DAILY 02/27/22 10/26/22 History release candesartan 32 1 tablet PO DAILY #30 tabs 06/15/22 10/26/22 Rx mg-hydrochlorothiazide 12.5 mg tablet sertraline 50 mg tablet 50 mg PO DAILY #30 tabs 06/15/22 10/26/22 Rx rivaroxaban 20 mg tablet (Xarelto) 20 mg PO DAILY #90 tabs 10/12/22 10/26/22 Rx furosemide 20 mg tablet 20 mg PO DAILY 10/19/22 10/26/22 History potassium chloride 10 mEq 10 meq PO DAILY 10/19/22 10/26/22 History tablet,extended release trospium 60 mg capsule,extended 60 mg PO DAILY 10/19/22 10/26/22 History release 24 hr zolpidem 10 mg tablet 10 mg PO HS 10/19/22 10/26/22 History Patient hx anesthesia problems: none Family hx anesthesia problems: none Results Review: All pre-operative results and documents have been reviewed as part of the pre-operative evaluation. [facility] Past Medical History Medical History (Updated 10/25/22 @ 13:57 by Junior Spears MD) Asthma Breast cancer History of blood clots History of DVT (deep vein thrombosis) Hypertension Insomnia Migraine Morbid obesity with BMI of 50.0-59.9, adult Obesity Periodic health assessment, general screening, adult Peroneal tendonitis of left lower extremity Plantar fasciitis of left foot Pulmonary emboli Shortness of breath Sprain of left foot Vision abnormalities Vitamin D deficiency Surgical History Surgical History History of breast surgery History of carpal tunnel release History of knee surgery Family History Family History Other Diabetes mellitus Family history of arthritis Family history of malignant neoplasm Hypertension Social History Social History Smoking packs per day: 0.75 Smoking cigarettes per day: 15.0 Years smoked: 50 Smoking pack-years: 37.50 Smoking status: Former smoker Tobacco type: cigarettes Smoking end date: 06/11/15 Alcohol intake: never Substance use: never Substance use type: does not use Living arrangements: alone Occupation/Education: occupation Gender identity (if verbalized by the patient): Female Spiritual care concerns: No Anes - Eval Final PreProcedure Day of Procedure 10/25/22 13:57 Patient weight: super morbidly obese Heart: regular rate and rhythm Lungs: clear to auscultation and normal air movement Airway: Mallampati scale class II Neurological: alert and oriented Last oral intake: >/= 8 hours ASA classification: III Emergent: no Anesthetic plan: proceed Anesthesia type and monitoring: general LMA Results Review: All pre-operative results and documents have been reviewed as part of the pre-operative evaluation. Informed Consent: The patient's anesthetic plan and its attendant risks and benefits were discussed with the patient/family/POA. Questions were solicited and answers provided to the satisfaction of the patient/family/POA.
[2022-10-26] VITALS (7 sets, daily range): BP systolic 120–154; BP diastolic 68–93; PULSE 82–100; RESP 14–16; TEMP 36–37.1; O2SAT 93–100
--- NOTE | 2022-10-26 05:54 | ECG_ITS ---
Measurements Intervals [place] Rate: 81 P: 38 VT: 152 QRS: -10 QRSD: 103 T: 9 QT: 398 QTc: 464 Interpretive Statements SINUS RHYTHM VOLTAGE CRITERIA FOR LVH BASELINE ARTIFACT- V4, V6 BORDERLINE ECG COMPARED TO ECG 03/09/2019 04:25:02 SINUS RHYTHM NOW PRESENT Electronically Signed On 10-26-2022 7:45:04 CDT by Lee Oswald D.O.
[2022-10-26] MEDS: LACTATED RINGERS 1,000 ML 30 ML IV CONT (06:25)
[2022-10-26] MEDS: ACETAMINOPHEN 500 MG TABLET 1000 MG PO (06:26)
[2022-10-26] MEDS: KETOROLAC 15 MG/ML VIAL (*BKC) IV PUSH (06:27)
--- NOTE | 2022-10-26 06:53 | WPDHPUPDATE1 ---
History and Physical Update Update Date/Time: 10/26/22 06:53 History and Physical has been reviewed, including an updated exam of the patient. There are NO changes in the patient's condition. Risks, benefits, and alternatives have been discussed and questions answered. Patient agrees to proceed with procedure.
--- NOTE | 2022-10-26 07:12 | SUR.PREOP ---
PT STATES SHE HAS USED A WALKER AND CRUTCHES AND WILL BE ABLE TO OBTAIN A WALKER TO USE AT HOME.
[2022-10-26] MEDS: ceFAZolin 3 GM/D5W 100 ML 100 ML IVPB (07:28)
[2022-10-26] MEDS: BUPIVACAINE/EPINEPHRINE 0.25% 10 ML VIAL 20 ML INFILTRATE (07:48)
--- NOTE | 2022-10-26 08:02 | W.PM.PROC2 ---
Procedure Note - Detailed Date of Procedure 10/26/22 Pre-op Diagnosis Lt Plantar Fasciitis / Heel Pain Post-op Diagnosis Same Procedure Performed Left foot plantar fasciotomy Surgeon Portillo Knox MD Anesthesia General Indications 62-year-old with recalcitrant left heel pain and plantar fasciitis. Previous cortisone injections, physical therapy, stretching previous Endoscopic micro release. presents for operative treatment. Description of Procedure Patient identified in the preoperative holding. Informed consent given. Operative extremity marked. Patient received intravenous antibiotics. Patient brought to the operating room where underwent general anesthetic by anesthesia team. Positioned supine. Time-out performed confirming the patient, site of the surgery and the plan. Left foot prepped and draped usual sterile surgical fashion using a ChloraPrep skin solution. 0.25% Marcaine plain was used as local anesthetic for both the left heel. Patient marked the area of maximum intensity of pain on the left heel. Using this as a centering point we made an approximately 4 centimeter sq around this area. Addressing the left foot we then used a 0.062 in K-wire to incise the skin in multiple positions for a total of 20 points. The radiofrequency probe was then inserted into each point and a radiofrequency shock was delivered to the area. At each area a release and division of the plantar fascia was performed. Steri-Strips were then applied to the foot. Steri-Strips were then applied to the foot. Sterile dressing applied. The patient was then woken from anesthesia, extubated and taken to the recovery room in stable condition. All sponge, needle, instrument counts were correct at the end of the case. Estimated Blood Loss 2 Tourniquet Time 15 Drains No Packing No Pathology None sent Complications None Condition Stable Disposition PACU [facility] Billing Surgery - Charge Forward: Surgery Billing ([id number])
== END 2022-10-26 09:39 | disposition home or self-care (01) ==
PROVIDERS: PCP Nurse Practitioner Family; Visit Provider Orthopaedic Surgery
PROC: (CPT 28008; principal; 2022-10-26 07:30)
DX: M72.2 Plantar fascial fibromatosis (principal); Z85.3 Personal history of malignant neoplasm of breast; Z86.718 Personal history of other venous thrombosis and embolism; Z86.711 Personal history of pulmonary embolism; Z87.891 Personal history of nicotine dependence
CPT/HCPCS: 28008; 93005; A9270; C1713; J0690; J1100; J1885; J2250; J2405; J2704; J3010; J7120

== ENCOUNTER 2023-01-18 13:59 | Outpatient (CLI) | payer OTHER, SELFPAY ==
--- NOTE | ~2023-01-18 | MM_ITS ---
EXAMINATION: MM screening [facility] BI w octavia HISTORY: Screening mammogram, history of right breast cancer TECHNIQUE: Craniocaudal and mediolateral oblique 3-D tomosynthesis images were obtained and synthetic 2-D images were generated. CAD analysis was submitted and interpreted. COMPARISON: 01/17/2022, 12/14/2020, 04/29/2020, 09/16/2019 BREAST PARENCHYMAL COMPOSITION: The breasts are almost entirely fatty. FINDINGS: There are chronic, stable changes of right lumpectomy including surgical clips and asymmetr y in the far posterior third of the breast on the mediolateral oblique view. No suspicious mass, calc ification, or architectural distortion are identified in either breast to suggest malignancy. There h as been no suspicious interval change. IMPRESSION: 1. No mammographic evidence of malignancy. 2. Recommend routine screening mammography in one year. BI-RADS Category 2: Benign finding(s). Reviewed, dictated and finalized at location A.
== END 2023-01-18 14:00 | disposition home or self-care (01) ==
PROVIDERS: PCP Nurse Practitioner Family; Visit Provider Internal Medicine Hematology & Oncology
DX: Z12.31 Encounter for screening mammogram for malignant neoplasm of breast (principal)
CPT/HCPCS: 77063; 77067

== ENCOUNTER 2023-01-23 14:28 | Outpatient (CLI) | payer OTHER, SELFPAY ==
[2023-01-23 15:00] LABS: Basophils Percent Auto 0.4 % (0.2-1.2); Eosinophils Absolute Auto 0.1 K/mm3 (0-0.3); Eosinophils Percent Auto 1.4 % (0-4.4); Hematocrit 37.9 % (37.0-47.0); Hemoglobin 11.4 g/dL (12.0-15.0); Immature Granulocyte Absolute 0.05 K/mm3 (0.00-0.031); Immature Granulocyte Percent A 0.5 % (0-0.5); Lymphocytes Absolute Auto 1.82 K/mm3 (0.9-3.2); Lymphocytes Percent Auto 19.9 % (18.3-44.2); Mean Corpuscular HGB Conc 30.1 g/dl (32-36); Mean Corpuscular Hemoglobin 25.3 pg (26-34); Mean Corpuscular Volume 84.2 fl (80-100); Mean Platelet Volume 9.3 fl (7.4-10.4); Monocytes Absolute Auto 0.7 K/mm3 (0.1-0.6); Monocytes Percent Auto 7.5 % (2.6-8.5); Neutrophils Absolute Auto 6.4 K/mm3 (1.3-6.7); Neutrophils Percent Auto 70.3 % (45.5-73.1); Platelet Count Result 362 k/mm3 (150-375); Red Cell Distribution Width 16.2 % (11.5-14.5); White Blood Count 9.2 K/mm3 (4.5-10.0)
[2023-01-23 15:14] LABS: Rheumatoid Factor < 12.0 IU/ML (<12)
[2023-01-23 15:18] LABS: CRP 2.9 mg/dL (<1.0); Cholesterol 206 mg/dL (0-200); HDL Direct 50 mg/dL; Triglycerides 217 mg/dL (<150); Uric Acid 9.4 mg/dL (2.5-7.5)
[2023-01-23 15:24] LABS: LDL Cholesterol Direct 112 mg/dL
[2023-01-23 15:47] LABS: Erythrocyte Sedimentation Rate 61 mm/hr (0-20)
[2023-01-29 15:49] LABS: Fibrosis Score 0.04; Fibrosis Stage F0
[2023-01-29 15:50] LABS: Alpha-2-Macroglobulin 158; Haptoglobin 391; Necroinflammat Interpretation A0
[2023-01-29 15:51] LABS: ALT 27; Apolipoprotein A1 177; GGT 19; Total Bilirubin 0.3
== END 2023-01-23 14:29 | disposition home or self-care (01) ==
LOC: ANHLAB 14:30
PROVIDERS: PCP Nurse Practitioner Family; Visit Provider Orthopaedic Surgery
DX: M10.9 Gout, unspecified (principal)
CPT/HCPCS: 36415; 80061; 81596; 84550; 85025; 85652; 86038; 86140; 86430

== ENCOUNTER 2023-03-07 10:02 | Outpatient (CLI) | payer OTHER, SELFPAY ==
[2023-03-07 10:31] LABS: Basophils Percent Auto 0.4 % (0.2-1.2); Eosinophils Absolute Auto 0.1 K/mm3 (0-0.3); Eosinophils Percent Auto 1.9 % (0-4.4); Hematocrit 37.8 % (37.0-47.0); Hemoglobin 11.5 g/dL (12.0-15.0); Immature Granulocyte Absolute 0.03 K/mm3 (0.00-0.031); Immature Granulocyte Percent A 0.4 % (0-0.5); Lymphocytes Absolute Auto 1.33 K/mm3 (0.9-3.2); Lymphocytes Percent Auto 18.1 % (18.3-44.2); Mean Corpuscular HGB Conc 30.4 g/dl (32-36); Mean Corpuscular Hemoglobin 25.6 pg (26-34); Mean Corpuscular Volume 84.2 fl (80-100); Mean Platelet Volume 9.5 fl (7.4-10.4); Monocytes Absolute Auto 0.4 K/mm3 (0.1-0.6); Neutrophils Absolute Auto 5.4 K/mm3 (1.3-6.7); Neutrophils Percent Auto 73.2 % (45.5-73.1); Platelet Count Result 325 k/mm3 (150-375); Red Blood Count 4.49 M/mm3 (4.2-5.4); Red Cell Distribution Width 15.5 % (11.5-14.5); White Blood Count 7.3 K/mm3 (4.5-10.0)
[2023-03-07 11:38] LABS: Alanine Aminotransferase 50 U/L (6-35); Albumin Level 4.2 g/dL (3.5-5.1); Alkaline Phosphatase 112 U/L (38-126); Anion Gap 10 mmol/L (8-16); Aspartate Amino Transferase 67 U/L (14-36); Bilirubin,Total 0.5 mg/dL (0.2-1.3); Blood Urea Nitrogen 16 mg/dL (7-17); Calcium 8.4 mg/dL (8.4-10.2); Carbon Dioxide 32 mmol/L (22-30); Chloride 99 mmol/L (98-107); Estimated Glomerular Filt Rate 45; Glucose 157 mg/dL (65-110); Potassium 3.6 mmol/L (3.4-5.0); Sodium 141 mmol/L (137-145)
[2023-03-10 10:25] LABS: CA 15-3 14 U/mL (<32)
== END 2023-03-07 10:03 | disposition home or self-care (01) ==
PROVIDERS: PCP Nurse Practitioner Family; Visit Provider Internal Medicine Hematology & Oncology
DX: C50.411 Malignant neoplasm of upper-outer quadrant of right female breast (principal); Z17.0 Estrogen receptor positive status [ER+]
CPT/HCPCS: 36415; 80053; 85025; 86300

== ENCOUNTER 2023-03-07 10:47 | Emergency (ER) | payer OTHER, SELFPAY ==
[2023-03-07 10:56] VITALS: BP 135/86; PULSE 102; RESP 20; TEMP 36.4; O2SAT 97
--- NOTE | 2023-03-07 11:09 | ED.EXTPRO ---
HPI - Extremity Problem General Chief complaint: Extremity Problem,Nontraumatic Stated complaint: Lt Foot Pain Source: patient Mode of arrival: ambulatory Limitations: no limitations History of Present Illness HPI Narrative: 62-year-old female presented for complaint of left great toe pain slowly worsening over the past few weeks. Reports some redness and swelling. She states she was treated for gout on 01/23/2023, and took colchicine as directed. Patient does not have a PCP. Denies injury or wounds. Taking Tylenol. Pain is worse after walking all day and at night. Taking HCTZ and furosemide. Related Data Home Medications Medication Instructions Recorded Confirmed akgknhhh-cog-tmhgs acid 0.4 1 tablet PO DAILY 05/03/19 03/07/23 mg-lycopene 300 mcg-lutein 250 mcg tablet (Centrum Silver) cholecalciferol (vitamin D3) 125 125 mcg PO DAILY 02/27/22 03/07/23 mcg (5,000 unit) capsule omeprazole 20 mg capsule,delayed 20 mg PO DAILY 02/27/22 03/07/23 release furosemide 20 mg tablet 20 mg PO DAILY 10/19/22 03/07/23 potassium chloride 10 mEq 10 meq PO DAILY 10/19/22 03/07/23 tablet,extended release trospium 60 mg capsule,extended 60 mg PO DAILY 10/19/22 03/07/23 release 24 hr zolpidem 10 mg tablet 10 mg PO HS 10/19/22 03/07/23 Allergies Allergy/AdvReac Type Severity Reaction Status Date / Time No Known Allergies Allergy Verified 03/07/23 10:58 Review of Systems Review of Systems: CONSTITUTIONAL: Denies body aches, fever, chills EYES: Denies visual changes ENT: Denies rhinorrhea, congestion CARDIOVASCULAR: Denies chest pain, palpitations, or edema. RESPIRATORY: Denies cough or dyspnea. GASTROINTESTINAL: Denies abdominal pain, nausea, vomiting, or diarrhea. SKIN: Denies rash, itching, or wounds. MUSCULOSKELETAL: Reports left toe pain Denies back pain, or myalgia. NEUROLOGIC: Denies headache, numbness, tingling, or weakness. 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 Hallux rigidus of right foot History of blood clots History of DVT (deep vein thrombosis) Hypertension Insomnia Migraine Morbid obesity with BMI of 50.0-59.9, adult Obesity Periodic health assessment, general screening, adult Peroneal tendonitis of left lower extremity Plantar fasciitis of left foot Pulmonary emboli Shortness of breath Sprain of left foot Vision abnormalities Vitamin D deficiency Surgical History Surgical History History of breast surgery History of carpal tunnel release History of knee surgery Family History Family History Other Diabetes mellitus Family history of arthritis Family history of malignant neoplasm Hypertension Social History Social History Smoking packs per day: 0.75 Smoking cigarettes per day: 15.0 Years smoked: 50 Smoking pack-years: 37.50 Smoking status: Former smoker Tobacco type: cigarettes Smoking end date: 06/11/15 Alcohol intake: never Substance use: never Substance use type: does not use Living arrangements: alone Occupation/Education: occupation Gender identity (if verbalized by the patient): Female Spiritual care concerns: No Comments At time of signature, I have reviewed and agree with nursing past medical, surgical, social and family history unless otherwise noted. Please see nursing chart for further information. There is no relevant family history pertinent to the presenting complaint Exam Narrative: GENERAL: Well-appearing, well-nourished, and in no acute distress. HEAD: Normocephalic, atraumatic. CHEST: Speaks in full sentences. No respiratory distress. HEART: Re
== END 2023-03-07 11:27 | disposition home or self-care (01) ==
PROVIDERS: Emergency Provider Nurse Practitioner Family
DX: M10.9 Gout, unspecified (principal); I10 Essential (primary) hypertension; Z79.899 Other long term (current) drug therapy; Z86.718 Personal history of other venous thrombosis and embolism; Z85.3 Personal history of malignant neoplasm of breast; Z87.891 Personal history of nicotine dependence
CPT/HCPCS: 36415; 80053; 85025; 86300; 99213; G0463

== ENCOUNTER 2023-09-04 10:10 | Outpatient (CLI) | payer MEDICARE, SELFPAY ==
[2023-09-04 10:31] LABS: Basophils Percent Auto 0.5 % (0.2-1.2); Eosinophils Absolute Auto 0.1 K/mm3 (0-0.3); Eosinophils Percent Auto 1.5 % (0-4.4); Hematocrit 39.1 % (37.0-47.0); Hemoglobin 11.4 g/dL (12.0-15.0); Immature Granulocyte Absolute 0.05 K/mm3 (0.00-0.031); Immature Granulocyte Percent A 0.6 % (0-0.5); Lymphocytes Absolute Auto 1.85 K/mm3 (0.9-3.2); Lymphocytes Percent Auto 22.9 % (18.3-44.2); Mean Corpuscular HGB Conc 29.2 g/dl (32-36); Mean Corpuscular Hemoglobin 24.2 pg (26-34); Mean Corpuscular Volume 82.8 fl (80-100); Mean Platelet Volume 9.4 fl (7.4-10.4); Monocytes Absolute Auto 0.6 K/mm3 (0.1-0.6); Monocytes Percent Auto 7.4 % (2.6-8.5); Neutrophils Absolute Auto 5.4 K/mm3 (1.3-6.7); Neutrophils Percent Auto 67.1 % (45.5-73.1); Platelet Count Result 370 k/mm3 (150-375); Red Blood Count 4.72 M/mm3 (4.2-5.4); White Blood Count 8.1 K/mm3 (4.5-10.0)
[2023-09-04 10:38] LABS: Hypochromasia 1+; Platelet Estimate Adequate (Adequate); Schistocytes None Seen
[2023-09-04 11:38] LABS: Alanine Aminotransferase 38 U/L (6-35); Albumin Level 4.1 g/dL (3.5-5.1); Alkaline Phosphatase 115 U/L (38-126); Anion Gap 8 mmol/L (4-12); Aspartate Amino Transferase 49 U/L (14-36); Bilirubin,Total 0.4 mg/dL (0.2-1.3); Blood Urea Nitrogen 17 mg/dL (7-17); Carbon Dioxide 28 mmol/L (22-30); Chloride 106 mmol/L (98-107); Estimated Glomerular Filt Rate 38; Glucose 102 mg/dL (65-110); Sodium 142 mmol/L (137-145)
[2023-09-08 10:10] LABS: CA 15-3 17 U/mL (<32)
== END 2023-09-04 10:11 | disposition home or self-care (01) ==
LOC: ANHLAB 10:13
PROVIDERS: PCP Nurse Practitioner Family; Visit Provider Internal Medicine Hematology & Oncology
DX: C50.411 Malignant neoplasm of upper-outer quadrant of right female breast (principal); Z17.0 Estrogen receptor positive status [ER+]
CPT/HCPCS: 36415; 80053; 85025; 86300

== ENCOUNTER 2024-02-06 14:06 | Outpatient (CLI) | payer MEDICARE, SELFPAY ==
--- NOTE | ~2024-02-06 | MM_ITS ---
EXAMINATION: MM screening ambrose BI w octavia HISTORY: Screening TECHNIQUE: Craniocaudal and mediolateral oblique 3-D tomosynthesis images were obtained and synthetic 2-D images were generated. CAD analysis was submitted and interpreted. COMPARISON: Comparison to multiple prior studies sequentially, with oldest reviewed study dated 12/2019. BREAST PARENCHYMAL COMPOSITION: Not dense: There are scattered areas of fibroglandular density. FINDINGS: There is no evidence of suspicious mass, calcification, or architectural distortion to sugg est malignancy in either breast. There has been no suspicious interval change. IMPRESSION: 1. No mammographic evidence of malignancy. 2. Recommend routine screening mammography in one year. Reviewed, dictated and finalized at location B.
== END 2024-02-06 14:07 | disposition home or self-care (01) ==
LOC: ANHIMG 14:07
PROVIDERS: PCP Nurse Practitioner Family; Visit Provider Internal Medicine Hematology & Oncology
DX: Z12.31 Encounter for screening mammogram for malignant neoplasm of breast (principal)
CPT/HCPCS: 77063; 77067

== ENCOUNTER 2024-03-07 09:24 | Outpatient (CLI) | payer MEDICARE, SELFPAY ==
[2024-03-07 09:37] LABS: Basophils Percent Auto 0.5 % (0.2-1.2); Eosinophils Absolute Auto 0.2 K/mm3 (0-0.3); Eosinophils Percent Auto 1.9 % (0-4.4); Hematocrit 40.1 % (37.0-47.0); Hemoglobin 11.7 g/dL (12.0-15.0); Immature Granulocyte Absolute 0.04 K/mm3 (0.00-0.031); Immature Granulocyte Percent A 0.5 % (0-0.5); Lymphocytes Absolute Auto 1.65 K/mm3 (0.9-3.2); Lymphocytes Percent Auto 18.7 % (18.3-44.2); Mean Corpuscular HGB Conc 29.2 g/dl (32-36); Mean Corpuscular Hemoglobin 24.8 pg (26-34); Monocytes Absolute Auto 0.6 K/mm3 (0.1-0.6); Monocytes Percent Auto 6.3 % (2.6-8.5); Neutrophils Absolute Auto 6.4 K/mm3 (1.3-6.7); Neutrophils Percent Auto 72.1 % (45.5-73.1); Platelet Count Result 360 k/mm3 (150-375); Red Blood Count 4.72 M/mm3 (4.2-5.4); White Blood Count 8.8 K/mm3 (4.5-10.0)
[2024-03-07 09:41] LABS: Hypochromasia 1+; Platelet Estimate Adequate (Adequate); Schistocytes None Seen
[2024-03-07 15:55] LABS: Alanine Aminotransferase 41 U/L (6-35); Albumin Level 4.2 g/dL (3.5-5.1); Alkaline Phosphatase 135 U/L (38-126); Anion Gap 13 mmol/L (4-12); Aspartate Amino Transferase 55 U/L (14-36); Bilirubin,Total 0.4 mg/dL (0.2-1.3); Blood Urea Nitrogen 15 mg/dL (7-17); Calcium 8.4 mg/dL (8.4-10.2); Carbon Dioxide 27 mmol/L (22-30); Chloride 103 mmol/L (98-107); Estimated Glomerular Filt Rate 56; Glucose 120 mg/dL (65-110); Sodium 143 mmol/L (137-145)
[2024-03-11 05:08] LABS: CA 15-3 18 U/mL (<32)
== END 2024-03-07 09:25 | disposition home or self-care (01) ==
LOC: ANHLAB 09:26
PROVIDERS: PCP Nurse Practitioner Family; Visit Provider Internal Medicine Hematology & Oncology
DX: C50.411 Malignant neoplasm of upper-outer quadrant of right female breast (principal); Z17.0 Estrogen receptor positive status [ER+]
CPT/HCPCS: 36415; 80053; 85025; 86300

== ENCOUNTER 2025-01-10 08:37 | Emergency (ER) | payer MEDICARE, SELFPAY ==
--- OUTSIDE RECORDS SUMMARY | 2025-01-10 08:42 | XMS_ITS | Encounter Summary ---
Author Organization [facility] Address [facility] [place] [address] Care Team Providers Care Personnel Research Scientist Name Role Phone Aline Soliza [facility] Unavailable [phone] Moncho Mann MD Unavailable [phone] Mirela Garay [facility] Primary Care Provider + Roxie Rowe MD Unavailable [phone] Genie Heard MD Primary Care Provider + Encounter Details Date Type Department Care Team (Late st Contact Info) Description 10/08/2023 MyChart Message Enc [facility] Medical Group Family & Internal Medicine [facility] [address] [place] [address] Mirela Garay, [facility] [address] [facility], [address] [place] [address] Social History Tobacco Use Types Packs/Day Years Used Date Smoking Tobacco: Former Cigarettes 0.5 15 0 06/11/1999 - 06/11/2014 Passive Smoke Exposure: Past Smokeless Tobacco: Former Alcohol Use Standard Drinks/Week Comments Not Currently 0 (1 standard drink = 0.6 oz pur e alcohol) PHQ-2 Answer Date Recorded Patient Health Questionnaire-2 Score 0 07/20/2023 Comments No Sex and Gender Information Value Date Recorded Sex Assigned at Female 07/28/2024 11:08 AM RADIO EQUIPMENT REPAIRER Legal Sex Female 11:46 PM CDT Gender Identity Female 07/28/2024 11:08 AM RADIO EQUIPMENT REPAIRER Sexual Orientation Straight 07/28/2024 11 :08 AM RADIO EQUIPMENT REPAIRER documented as of this encounter Progress Notes * Harriett Lemos LPN - 10/09/2023 9:55 AM CDT Pt called I read her message about wait on referral She also said she wants to see pulm at [facility] documented in this encounter Plan of Treatment Upcoming Encounters Date Type Department Care Team (Late st Contact Info) Description 01/26/2025 9:50 AM CDT Office Visit [address] [address] Genie Heard MD [address] [address] 03/17/2025 9:30 AM CDT Office Visit [address] [address] Genie Heard MD [address] [address] 03/17/2025 10:30 AM CDT Office Visit [address] [address] Genie Heard MD [address] [address] 06/26/2025 11:00 AM RADIO EQUIPMENT REPAIRER Office Visit [place] [address] [facility] [place] [address] Jesika Echavarria PA [address] [facility], [address] [place] [address] documented as of this encounter Visit Diagnoses Not on filedocumented in this encounter Additional Health Concerns Assessment Noted Time PHQ-9 Depression Total Score: 2 10/06/19 23 1:21 PM CDT documented as of this encounter Care Teams Personnel Research Scientist Relationship Specialty Start Date End Date Mirela Garay, [facility] [address], [address] [place] [address] PCP - General Nurse Practitioner Family 01/10/2308/10 Genie Heard MD [address] [place] [address] PCP - General FAMILY PRACTICE 09/12/24 Lenore Soliz, [facility] [address] [employer] [address] [place] [address] OBGYN 07/08/22 Moncho Mann MD [address] [place] [address] HEMATOLOGY/ONCOLOGY 07/08/22 Roxie Rowe MD [address] [place] [address] OBGYN 01/31/23 documented as of this encounter
--- OUTSIDE RECORDS SUMMARY | 2025-01-10 08:42 | XMS_ITS | Clinical Summary ---
Author Organization [facility] Address [address] [facility] [place] [address] Care Team Providers Care Grounding Engineer Name Role Phone Unavailable Primary Care Provider Unavailabl e Allergies No known active allergies Medications candesartan-hyd roCHLOROthiazid e (ATACAND HCT) 32-12.5 mg Tablet TK 1 T PO D 1 09/13/2018 Active ergocalciferol (VITAMIN D2) 50,000 unit capsule TK 1 C PO TWO TIMES PER WEEK WITH FOOD 2 10/25/2018 Active oxybutynin chloride (DITROPAN XL) 15 mg Extended Release 24 hour tablet TK 2 TS PO QD 2 10/28/2018 Active omeprazole (PriLOSEC) 20 mg Capsule, Delayed Release(E.C.) Take 20 mg by mouth daily. Active melatonin 3 mg Tablet Take by mouth nightly as needed for Insomnia. Active folic acid/multivit-m in/lutein (CENTRUM SILVER ORAL) Take by mouth daily. Active sertraline (ZOLOFT) 50 mg tablet TK 1 AND 1/2 T PO QD 5 01/21/2019 Active XARELTO 20 mg Tablet TK 1 T PO ONCE D 06/13/2019 Active zolpidem (AMBIEN) 10 mg tablet Take 10 mg by mouth daily at bedtime. 08/07/2021 Active trospium (SANCTURA XR) 60 mg Extended Release 24 hour capsule Take 60 mg by mouth daily. 09/05/2022 Active allopurinoL (ZYLOPRIM) 100 mg tablet Take 100 mg by mouth daily. 08/24/2023 Active candesartan (ATACAND) 32 mg Tablet Take 32 mg by mouth daily. 08/03/2023 Active cholecalciferol , vitamin D3, 5,000 unit Take 5,000 Units by mouth. Active furosemide (LASIX) 40 mg tablet Take 20 mg by mouth daily. 05/04/2023 Active amLODIPine (NORVASC) 5 mg tablet Take 5 mg by mouth daily. 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 01/14/2019 Malignant neoplasm of upper- inner quadrant of right breast in female, estrogen receptor positive 11/19/2018 Resolved Problems Problem Noted Date Diagnosed Date Resolved Date Infection of right breast 01/20/2019 Abnormal mammogram of right breast 11/12/2018 11/19/2018 Other signs and symptoms in breast 11/12/2018 11/19/2018 Abnormal ultrasound of breast 11/12/2018 11/19/2018 Morbid obesity with body mas s index of 40.0-49.9 11/06/2018 04/15/2020 Encounters Date Type Department Care Team Description 12/24/2024 External Device Data STL ABSTRACTION Provider, Abstract 11/26/2024 External Device Data STL ABSTRACTION Provider, Abstract 10/29/2024 External Device Data [facility] ABSTRACTION Provider, Abstract 10/29/2024 External Device Data ST[facility] ABSTRACTION Provider, Abstract from Last 3 Months Social History Tobacco Use Types Packs/Day Years Used Date Smoking Tobacco: Former Cigarettes 0.5 5 1 - 03/11/2017 Smokeless Tobacco: Never Tobacco Cessation:Counseling Given: Not Answered Alcohol Use Standard Drinks/Week Comments Not Currently 0 (1 standard drink = 0.6 oz pur e alcohol) Comments No Sex and Gender Information Value Date Recorded Sex Assigned at Not on file Legal Sex Female 12:23 PM CDT Gender Identity Not on file Sexual Orientation Not on file Last Filed Vital Signs Vital Sign Reading Time Taken Comments Blood Pressure 131/86 03/12/2024 10:52 AM CDT Pulse 115 03/12/2024 10:52 AM CDT Temperature 36.5 C (97.7 F) 03/12/2024 10:52 AM CDT Respiratory Rate 18 03/12/2024 10:52 AM CDT Oxygen Saturation 95% 03/12/2024 10:52 AM CDT Inhaled Oxygen Concentration - - Weight 157.4 kg (347 lb) 03/12/2024 10:52 AM CDT Height 167.6 cm (5' 6) 08/16/2021 10:54 AM BEHAVIOR SUPPORT SPECIALIST Body Mass Index 56.01 08/16/2021 10:54 AM BEHAVIOR SUPPORT SPECIALIST Plan of Treatment Upcoming Encounters Date Type Department Care Team (Late st Contact Info) Description 03/23/2025 2:45 PM CDT Office Visit [facility] Oncology and Hematology - [place] [address] [facility] [address] [place] [address] Moncho Mann MD [address] [facility] [address] [place] [address] Health Maintenance Due Date Last Done Comments Pre-Diabetes and Diabetes Screening 1960 ZOSTER VACCINE (1 of 2) 1977 FIT-DNA Q 3 years 2003 FIT/FOBT Q 1 year 2003 Flex Sig/CT Colonography Q 5 years 2003 RSV VACCINE (60+ or ) (1 - Risk 60-74 years 1-dose series) 2018 COVID-19 Vaccine (3 - Modern a risk series) 11/16/2020 10/19/2020, 09/21/2020 OSTEOPOROSIS SCREENING 2023 INFLUENZA VACCINE (#1) 2025 04/18/2023, 2019 BREAST CANCER SCREENING 02/05/2025 02/06/20 24, 01/18/2023, 12/14/2020, Additional history exists DTAP/TDAP/TD VACCINES (2 - T d or Tdap) 07/07/2032 07/07/2022 COLORECTAL SCREENING 08/24/2032 08/24/2022 Colorectal Cancer Screening 08/24/2032 PNEUMOCOCCAL VACCINE 50+ YEARS Completed 05/08/2023 Procedures Procedure Name Priority Date/Time Associated Diagnosis Comments MAMMO SCREENING BILAT Routine 02/06/2024 11:58 AM CDT from Last 3 Months or Most Recently Relevant to Health Maintenance Results * MAMMO SCREENING BILAT (02/06/2024 11:58 AM CDT) Anatomical Region Laterality Modality Breast Bilateral Mammography Moncho Mann MD MAMMO ORDERABLES Final Result from Last 3 Months or Most Recently Relevant to Health Maintenance Insurance
--- OUTSIDE RECORDS SUMMARY | 2025-01-10 08:42 | XMS_ITS | Encounter Summary ---
Author Organization [facility] Address [facility] [place] [address] Care Team Providers Care Counselor Aid Name Role Phone Aline Soliza [facility] Unavailable [phone] Moncho Mann MD Unavailable [phone] Mirela Garay [facility] Primary Care Provider + Roxie Rowe MD Unavailable [phone] Genie Heard MD Primary Care Provider + Encounter Details Date Type Department Care Team (Late st Contact Info) Description 08/05/2024 MyChart Message Enc [facility] Medical Group Family & Internal Medicine [facility] [address] [place] [address] Mirela Garay, [facility] [address] [facility], [address] [place] [address] Note Social History Tobacco Use Types Packs/Day Years Used Date Smoking Tobacco: Former Cigarettes 0.5 15 0 06/11/1999 - 06/11/2014 Passive Smoke Exposure: Past Smokeless Tobacco: Former Alcohol Use Standard Drinks/Week Comments Not Currently 0 (1 standard drink = 0.6 oz pur e alcohol) PHQ-2 Answer Date Recorded Patient Health Questionnaire-2 Score 0 07/28/2024 Comments No Sex and Gender Information Value Date Recorded Sex Assigned at Female 07/28/2024 11:08 AM SLUDGE CONTROL ATTENDANT Legal Sex Female 11:46 PM CDT Gender Identity Female 07/28/2024 11:08 AM SLUDGE CONTROL ATTENDANT Sexual Orientation Straight 07/28/2024 11 :08 AM SLUDGE CONTROL ATTENDANT documented as of this encounter Plan of Treatment Upcoming Encounters Date Type Department Care Team (Late st Contact Info) Description 01/26/2025 9:50 AM CDT Office Visit [address] [address] Genie Heard MD [address] [facility] [address] [place] [address] 03/17/2025 9:30 AM CDT Office Visit [address] [address] Genie Heard MD [address] [address] 03/17/2025 10:30 AM CDT Office Visit [address] [address] Genie Heard MD [address] [address] 06/26/2025 11:00 AM SLUDGE CONTROL ATTENDANT Office Visit [facility] [address] [place] [address] Jesika Echavarria PA [address] [facility], [address] [place] [address] documented as of this encounter Visit Diagnoses Not on filedocumented in this encounter Additional Health Concerns Assessment Noted Time PHQ-9 Depression Total Score: 0 07/28/19 25 11:15 AM SLUDGE CONTROL ATTENDANT documented as of this encounter Care Teams Counselor Aid Relationship Specialty Start Date End Date Mirela Garay, BASIC ACOUSTIC ANALYST-BC [address] [facility] [place], [place] [id number] PCP - General Nurse Practitioner Family 01/10/2308/10 Genie Heard MD [address] [place] [address] PCP - General FAMILY PRACTICE 09/12/24 Lenore Soliz, [facility]- [address] [place] [address] OBGYN 07/08/22 Moncho Mann MD [address] [place] [address] HEMATOLOGY/ONCOLOGY 07/08/22 Roxie Rowe MD [address] [place] [address] OBGYN 01/31/23 documented as of this encounter
--- OUTSIDE RECORDS SUMMARY | 2025-01-10 08:42 | XMS_ITS | Encounter Summary ---
Author Organization [facility] Address [facility] [place] [address] Care Team Providers Care Machine Puller Name Role Phone Aline Soliza [facility] Unavailable [phone] Moncho Mann MD Unavailable [phone] Mirela Garay [facility] Primary Care Provider + Roxie Rowe MD Unavailable [phone] Genie Heard MD Primary Care Provider + Encounter Details Date Type Department Care Team (Late st Contact Info) Description 01/03/2024 MyChart Message Enc [facility] Medical Group Family & Internal Medicine [facility] [address] [place] [address] Mirela Garay, [facility] [address] [facility], [address] [place] [address] Medicine Social History Tobacco Use Types Packs/Day Years [...] Sex Assigned at Female 07/28/2024 11:08 AM WIRE DRAWER Legal Sex Female 11:46 PM CDT Gender Identity Female 07/28/2024 11:08 AM WIRE DRAWER Sexual Orientation Straight 07/28/2024 11 :08 AM WIRE DRAWER documented as of this encounter Progress Notes * SABRINA Harvey - 01/04/2024 1:37 PM CDT Have her schedule an appointment. She does not have diabetes, so we will likely need to do a PA forWegovy and will need an OV * Neyda Jensen RN - 01/03/2024 4:02 PM CDT ?? documented in this encounter Plan of Treatment Upcoming Encounters Date Type Department Care Team (Late st Contact Info) Description 01/26/2025 9:50 AM CDT Office Visit [address] [address] Genie Heard MD [address] [address] 03/17/2025 9:30 AM CDT Office Visit [address] [address] Genie Heard MD [address] [address] 03/17/2025 10:30 AM CDT Office Visit [address] [address] Genie Heard MD [address] [address] 06/26/2025 11:00 AM WIRE DRAWER Office Visit [place] [facility] [address] [place] [address] Jesika Echavarria PA [address] [facility], [address] [place] [address] documented as of this encounter Visit Diagnoses Not on filedocumented in this encounter Additional Health Concerns Assessment Noted Time PHQ-9 Depression Total Score: 2 10/06/19 23 1:21 PM CDT documented as of this encounter Care Teams Machine Puller Relationship Specialty Start Date End Date Mirela Garay, [facility]- [address], [address] [place] [address] PCP - General Nurse Practitioner Family 01/10/2308/10 Genie Heard MD [address] [place] [address] PCP - General FAMILY PRACTICE 09/12/24 Lenore Soliz [facility] [address] [facility] [address] [place] [address] OBGYN 07/08/22 Moncho Mann MD [address] [facility] [address] [place] [address] HEMATOLOGY/ONCOLOGY 07/08/22 Roxie Rowe MD [address] [facility] [address] [place] [address] OBGYN 01/31/23 documented as of this encounter
--- OUTSIDE RECORDS SUMMARY | 2025-01-10 08:42 | XMS_ITS | Encounter Summary ---
Author Organization [facility] Address [facility], [facility] [place] [address] Care Team Providers Care Podiatric Foot And Ankle Specialist Name Role Phone Aline Soliza [facility] Unavailable [phone] Moncho Mann MD Unavailable [phone] Mirela Garay [facility] Primary Care Provider + Roxie Rowe MD Unavailable [phone] Genie Heard MD Primary Care Provider + Encounter Details Date Type Department Care Team (Late st Contact Info) Description 07/15/2024 MyChart Message Enc [facility] Medical Group Family & Internal Medicine [facility] [address] [place] [address] Mirela Garay, [facility] [address] [facility], [address] [place] [address] Surgery Social History Tobacco Use Types Packs/Day Years [...] Sex Assigned at Female 07/28/2024 11:08 AM WELDING MACHINE OPERATOR THERMIT Legal Sex Female 11:46 PM CDT Gender Identity Female 07/28/2024 11:08 AM WELDING MACHINE OPERATOR THERMIT Sexual Orientation Straight 07/28/2024 11 :08 AM WELDING MACHINE OPERATOR THERMIT documented as of this encounter Plan of Treatment Upcoming Encounters Date Type Department Care Team (Late st Contact Info) Description 01/26/2025 9:50 AM CDT Office Visit [address] [address] Genie Heard MD [address] [facility] [address] [place] [address] 03/17/2025 9:30 AM CDT Office Visit [address] [address] Genie Heard MD [address] [address] 03/17/2025 10:30 AM CDT Office Visit [address] [address] Genie Heard MD [address] [phone] 06/26/2025 11:00 AM WELDING MACHINE OPERATOR THERMIT Office Visit [facility] [facility] [address] [place] [address] Jesika Echavarria PA 3 [facility], [address] [place] [address] documented as of this encounter Visit Diagnoses Not on filedocumented in this encounter Additional Health Concerns Assessment Noted Time PHQ-9 Depression Total Score: 2 10/06/19 23 1:21 PM CDT documented as of this encounter Care Teams Podiatric Foot And Ankle Specialist Relationship Specialty Start Date End Date Mirela Garay, ADULT LITERACY TEACHER-BC [address] [facility], [facility] [address] [place], [place] [id number] PCP - General Nurse Practitioner Family 01/10/2308/10 Genie Heard MD [address] [place] [address] PCP - General FAMILY PRACTICE 09/12/24 Lenore Soliz [facility]- [address] [place] [address] OBGYN 07/08/22 Moncho Mann MD [address] [place] [address] HEMATOLOGY/ONCOLOGY 07/08/22 Roxie Rowe MD [address] [place] [address] OBGYN 01/31/23 documented as of this encounter
--- OUTSIDE RECORDS SUMMARY | 2025-01-10 08:42 | XMS_ITS | Encounter Summary ---
Author Organization [facility] Address [address] [place] [address] Care Team Providers Care Oracle Security Consultant Name Role Phone Jostin Mir MD Primary Care Provider Encounter Details Date Type Department Care Team (Late Contact Info) Description 02/05/2019 Chart Note [facility] Therapy [address] [place] [address] [place] [address] [place] [address] Social History Tobacco Use Types Packs/Day Years Used Date Smoking Tobacco: Former Cigarettes 0.5 5 1 - 03/11/2017 Smokeless Tobacco: Never Alcohol Use Standard Drinks/Week Comments Not Currently 0 (1 standard drink = 0.6 oz pur e alcohol) Comments No Sex and Gender Information Value Date Recorded Sex Assigned at Not on file Legal Sex Female 12:23 PM CDT Gender Identity Not on file Sexual Orientation Not on file documented as of this encounter Plan of Treatment Upcoming Encounters Date Type Department Care Team (Late st Contact Info) Description 03/23/2025 2:45 PM CDT Office Visit [facility] Oncology and Hematology - [place] [address] [facility] [address] [place] [address] Moncho Mann MD [address] [facility] [address] [place] [address] documented as of this encounter Visit Diagnoses Not on filedocumented in this encounter Care Teams Oracle Security Consultant Relationship Specialty Start Date End Date Jostin Mir MD [address] [place] [address] PCP - General Internal Medicine 11/06/18 03/13/23 documented as of this encounter
--- OUTSIDE RECORDS SUMMARY | 2025-01-10 08:42 | XMS_ITS | Encounter Summary ---
Author Organization [facility] Address [facility] [place] [address] Care Team Providers Care Director Of Head Start Name Role Phone Aline Soliza [facility] Unavailable [phone] Moncho Mann MD Unavailable [phone] Mirela Garay [facility] Primary Care Provider + Roxie Rowe MD Unavailable [phone] Genie Heard MD Primary Care Provider + Encounter Details Date Type Department Care Team (Late st Contact Info) Description 06/13/2023 MyChart Message Enc [facility] Medical Group Family & Internal Medicine [facility] [address] [place] [address] Mirela Garay, [facility] [address] [facility], [address] [place] [address] [place] Social History Tobacco Use Types Packs/Day Years Used Date Smoking Tobacco: Former Cigarettes 0.5 15 2 000 - 2015 Passive Smoke Exposure: Past Smokeless Tobacco: Former Alcohol Use Standard Drinks/Week Comments Not Currently 0 (1 standard drink = 0.6 oz pur e alcohol) PHQ-2 Answer Date Recorded Patient Health Questionnaire-2 Score 0 11/23/2022 Comments No Sex and Gender Information Value Date Recorded Sex Assigned at Female 07/28/2024 11:08 AM ASSOCIATE APPLICATION DEVELOPER Legal Sex Female 11:46 PM CDT Gender Identity Female 07/28/2024 11:08 AM ASSOCIATE APPLICATION DEVELOPER Sexual Orientation Straight 07/28/2024 11 :08 AM ASSOCIATE APPLICATION DEVELOPER documented as of this encounter Plan of Treatment Upcoming Encounters Date Type Department Care Team (Late st Contact Info) Description 01/26/2025 9:50 AM CDT Office Visit [address] [address] Genie Heard MD 7342 [facility] [address] [place] [id number] 03/17/2025 9:30 AM CDT Office Visit [address] [address] Genie Heard MD [address] [address] 03/17/2025 10:30 AM CDT Office Visit [address] [address] Genie Heard MD [address] 156624 06/26/2025 11:00 AM ASSOCIATE APPLICATION DEVELOPER Office Visit [facility] [address] [place] [address] Jesika Echavarria PA [address] [facility], [address] [place] [address] documented as of this encounter Visit Diagnoses Not on filedocumented in this encounter Additional Health Concerns Assessment Noted Time PHQ-9 Depression Total Score: 2 10/06/19 23 1:21 PM CDT documented as of this encounter Care Teams Director Of Head Start Relationship Specialty Start Date End Date Mirela Garay, [employer] DEVELOPER-BC [address], [address] [place], [place] [id number] PCP - General Nurse Practitioner Family 01/10/2308/10 Genie Heard MD [address] [place] [address] PCP - General FAMILY PRACTICE 09/12/24 Lenore Soliz, [facility]- [address] [employer] [address] [place] [address] OBGYN 07/08/22 Moncho Mann MD [address] [employer] [address] [place] [address] HEMATOLOGY/ONCOLOGY 07/08/22 Roxie Rowe MD [address] [employer] [address] [place] [address] OBGYN 01/31/23 documented as of this encounter
--- OUTSIDE RECORDS SUMMARY | 2025-01-10 08:42 | XMS_ITS | Encounter Summary ---
Author Organization [facility] Address [facility] [place] [address] Care Team Providers Care Fish Bait Processing Supervisor Name Role Phone Aline Soliza [facility] Unavailable [phone] Moncho Mann MD Unavailable [phone] Mirela Garay [facility] Primary Care Provider + Roxie Rowe MD Unavailable [phone] Genie Heard MD Primary Care Provider + Encounter Details Date Type Department Care Team (Late st Contact Info) Description 10/25/2023 MyChart Message Enc [facility] Medical Group Family & Internal Medicine [facility] [address] [place] [address] Mirela Garay, [facility] [address] [facility], [address] [place] [address] Scan Social History Tobacco Use Types Packs/Day Years [...] Sex Assigned at Female 07/28/2024 11:08 AM GENERATION ENGINEER Legal Sex Female 11:46 PM CDT Gender Identity Female 07/28/2024 11:08 AM GENERATION ENGINEER Sexual Orientation Straight 07/28/2024 11 :08 AM GENERATION ENGINEER documented as of this encounter Plan of Treatment Upcoming Encounters Date Type Department Care Team (Late st Contact Info) Description 01/26/2025 9:50 AM CDT Office Visit [address] [address] Genie Heard MD 7342 [facility] [address] [place] [id number] 03/17/2025 9:30 AM CDT Office Visit [address] [address] Genie Heard MD [address] [address] 03/17/2025 10:30 AM CDT Office Visit [address] [address] Genie Heard MD [address] [phone] 06/26/2025 11:00 AM GENERATION ENGINEER Office Visit [facility] [address] [place] [address] Jesika Echavarria PA 3 [facility], [address] [place] [address] documented as of this encounter Visit Diagnoses Not on filedocumented in this encounter Additional Health Concerns Assessment Noted Time PHQ-9 Depression Total Score: 2 10/06/19 23 1:21 PM CDT documented as of this encounter Care Teams Fish Bait Processing Supervisor Relationship Specialty Start Date End Date Mirela Garay, CAPACITY PLANNING MANAGER-BC [address] [facility], [facility] [address] [place], [place] [id number] PCP - General Nurse Practitioner Family 01/10/2308/10 Genie Heard MD [address] [place] [address] PCP - General FAMILY PRACTICE 09/12/24 Lenore Soliz [facility]- [address]22 [employer] [address] [place] [address] OBGYN 07/08/22 Moncho Mann MD [address] [employer] [address] [place] [address] HEMATOLOGY/ONCOLOGY 07/08/22 Roxie Rowe MD [address] [employer] [address] [place] [address] OBGYN 01/31/23 documented as of this encounter
--- OUTSIDE RECORDS SUMMARY | 2025-01-10 08:42 | XMS_ITS | Encounter Summary ---
Author Organization [facility] Address [facility]6 [place] [address] Care Team Providers Care Perfume And Toilet Water Maker Name Role Phone Aline Soliza [facility] Unavailable [phone] Moncho Mann MD Unavailable [phone] Mirela Garay [facility] Primary Care Provider + Roxie Rowe MD Unavailable [phone] Genie Heard MD Primary Care Provider + Encounter Details Date Type Department Care Team (Late st Contact Info) Description 02/21/2024 MyChart Message Enc [facility] Medical Group Family & Internal Medicine [facility] [address] [place] [address] Mirela Garay, [facility] [address] [facility], [address] [place] [address] Ciro Social History Tobacco Use Types Packs/Day Years [...] Sex Assigned at Female 07/28/2024 11:08 AM SPEEDER HAND Legal Sex Female 11:46 PM CDT Gender Identity Female 07/28/2024 11:08 AM SPEEDER HAND Sexual Orientation Straight 07/28/2024 11 :08 AM SPEEDER HAND documented as of this encounter Progress Notes * SABRINA Harvey - 02/21/2024 5:17 PM CDT I will put in for bupropion and naltrexone. I'll put them in as individual medications to see if the cost is cheaper. * Neyda Jensen RN - 02/21/2024 2:00 PM CDT Maybe Contrave per your note? documented in this encounter Plan of Treatment Upcoming Encounters Date Type Department Care Team (Late st Contact Info) Description 01/26/2025 9:50 AM CDT Office Visit [address] [address] Genie Heard MD [address] [address] 03/17/2025 9:30 AM CDT Office Visit [address] [address] Genie Heard MD 7342 [facility] [address] [place] [address] 03/17/2025 10:30 AM CDT Office Visit [address] [address] Genie Heard MD [address] [address] 06/26/2025 11:00 AM SPEEDER HAND [facility] [address] [place] [address] Jesika Echavarria PA 3 [facility], [address] [place] [address] documented as of this encounter Visit Diagnoses Not on filedocumented in this encounter Additional Health Concerns Assessment Noted Time PHQ-9 Depression Total Score: 2 10/06/19 23 1:21 PM CDT documented as of this encounter Care Teams Perfume And Toilet Water Maker Relationship Specialty Start Date End Date Mirela Garay, [facility] [address] [address], [email or web address] [address] [place] [address] PCP - General Nurse Practitioner Family 01/10/2308/10 Genie Heard MD [address] [place] [address] PCP - General FAMILY PRACTICE 09/12/24 Lenore Soliz, [facility] [address]22 [facility] [address] [place] [address] OBGYN 07/08/22 Moncho Mann MD 2226 [facility] [address] [place] [address] HEMATOLOGY/ONCOLOGY 07/08/22 Roxie Rowe MD 2022 [facility] [address] [place] [address] OBGYN 01/31/23 documented as of this encounter
--- OUTSIDE RECORDS SUMMARY | 2025-01-10 08:42 | XMS_ITS | Encounter Summary ---
Author Organization [facility] Address [facility]6 [place] [address] Care Team Providers Care Dairy Equipment Installer Name Role Phone Aline Soliza [facility] Unavailable [phone] Moncho Mann MD Unavailable [phone] Mirela Garay [facility] Primary Care Provider + Roxie Rowe MD Unavailable [phone] Genie Heard MD Primary Care Provider + Encounter Details Date Type Department Care Team (Late st Contact Info) Description 02/05/2024 MyChart Message Enc [facility] Medical Group Family & Internal Medicine [facility] [address] [place] [address] Mirela Garay, [facility] [address] [facility], [address] [place] [address] Ciro Social History Tobacco Use [...] Sex Assigned at Female 07/28/2024 11:08 AM TRAFFIC DIRECTOR Legal Sex Female 11:46 PM CDT Gender Identity Female 07/28/2024 11:08 AM TRAFFIC DIRECTOR Sexual Orientation Straight 07/28/2024 11 :08 AM TRAFFIC DIRECTOR documented as of this encounter Plan of Treatment Upcoming Encounters Date Type Department Care Team (Late st Contact Info) Description 01/26/2025 9:50 AM CDT Office Visit [address] [address] Genie Heard MD [address] [address] 03/17/2025 9:30 AM CDT Office Visit [address] [address] Genie Heard MD [address] [address] 03/17/2025 10:30 AM CDT Office Visit [address] [address] Genie Heard MD [address] [address] 06/26/2025 11:00 AM TRAFFIC DIRECTOR Office Visit [facility] [address] [place] [address] Jesika Echavarria PA 3 [facility], [address] [place] [address] documented as of this encounter Visit Diagnoses Not on filedocumented in this encounter Additional Health Concerns Assessment Noted Time PHQ-9 Depression Total Score: 2 10/06/19 23 1:21 PM CDT documented as of this encounter Care Teams Dairy Equipment Installer Relationship Specialty Start Date End Date Mirela Garay, PHOTO CHECKER AND ASSEMBLER-BC [address] [facility], [facility] [address] [place] [address] PCP - General Nurse Practitioner Family 01/10/2308/10 Genie Heard MD [address] [place] [address] PCP - General FAMILY PRACTICE 09/12/24 Lenore Soliz FNP- 3 [employer] [address] [place] [address] OBGYN 07/08/22 Moncho Mann MD [address] [employer] [address] [place] [address] HEMATOLOGY/ONCOLOGY 07/08/22 Roxie Rowe MD [address] [employer] [address] [place] [address] OBGYN 01/31/23 documented as of this encounter
--- OUTSIDE RECORDS SUMMARY | 2025-01-10 08:42 | XMS_ITS | Encounter Summary ---
Author Organization [facility] Address [facility] [place] [address] Care Team Providers Care Boiler House Mechanic Name Role Phone Aline Soliza [facility] Unavailable [phone] Moncho Mann MD Unavailable [phone] Mirela Garay [facility] Primary Care Provider + Roxie Rowe MD Unavailable [phone] Genie Heard MD Primary Care Provider + Encounter Details Date Type Department Care Team (Late st Contact Info) Description 07/30/2023 MyChart Message Enc [facility] Medical Group Family & Internal Medicine [facility] [address] [place] [address] Mirela Garay, [facility] [address] [facility], [address] [place] [address] Medication Social History Tobacco Use Types Packs/Day Years [...] Sex Assigned at Female 07/28/2024 11:08 AM ISSUER Legal Sex Female 11:46 PM CDT Gender Identity Female 07/28/2024 11:08 AM ISSUER Sexual Orientation Straight 07/28/2024 11 :08 AM ISSUER documented as of this encounter Plan of Treatment Upcoming Encounters Date Type Department Care Team (Late st Contact Info) Description 01/26/2025 9:50 AM CDT Office Visit [address] [address] Genie Heard MD 7342 [facility] [address] [place] [address] 03/17/2025 9:30 AM CDT Office Visit [address] [address] Genie Heard MD [address] [address] 03/17/2025 10:30 AM CDT Office Visit [address] [address] Genie Heard MD [address] [address] 06/26/2025 11:00 AM ISSUER Office Visit [facility] [address] [place] [address] Jesika Echavarria PA 3 [facility], [address] [place] [address] documented as of this encounter Visit Diagnoses Not on filedocumented in this encounter Additional Health Concerns Assessment Noted Time PHQ-9 Depression Total Score: 2 10/06/19 23 1:21 PM CDT documented as of this encounter Care Teams Boiler House Mechanic Relationship Specialty Start Date End Date Mirela Garay, UNIT SECRETARY-BC [address] [address], [address] [place], [place] [id number] PCP - General Nurse Practitioner Family 01/10/2308/10 Genie Heard MD [address] [place] [address] PCP - General FAMILY PRACTICE 09/12/24 Lenore Soliz, [facility]- [address] [employer] [address] [place] [address] OBGYN 07/08/22 Moncho Mann MD [address] [employer] [address] [place] [address] HEMATOLOGY/ONCOLOGY 07/08/22 Roxie Rowe MD [address] [employer] [address] [place] [address] OBGYN 01/31/23 documented as of this encounter
--- OUTSIDE RECORDS SUMMARY | 2025-01-10 08:42 | XMS_ITS | Clinical Summary ---
Author Organization [facility] Address [address] [place] [address] Care Team Providers Care Jboss Developer Name Role Phone Martínez, Lenore BENNETT Unavailable [phone] Moncho Mann MD Unavailable [phone] Roxie Rowe MD Unavailable [phone] eGnie Heard MD Primary Care Provider + Allergies No known active allergies Medications Multiple Vitamins-Minerals (CENTRUM SILVER 50+WOMEN) Tab Active Cholecalciferol (VITAMIN D-3) 125 MCG (5000 UT) Tab Take 1 tablet (5,000 Units total) by mouth 3 (three) times a week. 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 90 tablet 1 09/13/19 25 Active amLODIPine (NORVASC) 5 MG tabletIndications: Essential (primary) hypertension Take 1 tablet (5 mg total) by mouth daily. 90 tablet 1 09/13/19 25 Active candesartan (ATACAND) 32 MG tabletIndications: Essential (primary) hypertension Take 1 tablet (32 mg total) by mouth daily. 90 tablet 1 09/13/19 25 025 Active furosemide (LASIX) 40 MG tabletIndications: Lymphedema Take 0.5 tablets (20 mg total) by mouth daily. 45 tablet 3 09/13/19 25 Active omeprazole EC (PRILOSEC OTC) 20 MG tabletIndications: Gastroesophageal reflux disease without esophagitis Take 1 tablet (20 mg total) by mouth daily. 90 tablet 1 09/13/19 25 025 Active XARELTO 20 MG Tab tabletIndications: Deep vein thrombosis (DVT) of popliteal vein of left lower extremity, unspecified chronicity (CMS/HCC HHS/HCC) Take 1 tablet (20 mg total) by mouth daily. 90 tablet 3 09/13/19 25 Active zolpidem (AMBIEN) 10 MG tabletIndications: Primary insomnia Take 1 tablet (10 mg total) by mouth nightly as needed for Sleep. 30 tablet 5 09/13/19 25 Active sertraline (ZOLOFT) 50 MG tabletIndications: Anxiety and depression Take 1 tablet (50 mg total) by mouth daily. 90 tablet 3 10/08/19 25 026 Active trospium (SANCTURA) 20 MG tablet Take 1 tablet (20 mg total) by mouth 2 (two) times daily. 10/19/19 25 Active diclofenac sodium (VOLTAREN) 1 % gelIndications:Nixon ateral primary osteoarthritis of knee Apply 2 g topically 4 (four) times daily. 100 g 10/08/19 25 025 Discontinu ed(Discont inued by another clinician) Active Problems Problem Noted Date Diagnosed Date Tachycardia 12/19/2024 Assessment & Plan (12/19/2024 11:27 AM CDT): She is tachycardic on physical exam. I recommend to get an EKG just to rule out any type of atrial arrhythmias. Her EKG shows sinus tachycardia. It is likely underlying from possibly her body habitus versus being short of breath. I strongly suspect obesity hypoventilation syndrome. Prediabetes 09/18/2024 GERD (gastroesophageal reflux disease) Overview (09/12/2024): Taking omeprazole every other day. Assessment & Plan (09/12/2024 11:51 AM CDT): Recommend continuing for GI prophylaxis since she is on the Xarelto. OAB (overactive bladder) 09/12/2024 Overview (09/12/2024): Takes trospium. Not a lot of benefit. Wears pads or depends. Assessment & Plan (09/12/2024 11:50 AM CDT): Discussed risks of the medication. Trospium is not helping. Discontinued due to beers criteria. Morbid obesity with BMI of 50.0-59.9, adult 11/10 Assessment & Plan (09/12/2024 11:50 AM CDT): Made dietary and lifestyle recommendations. Assessment & Plan (11/30/2023 10:57 AM CDT): She is morbidly obese with a Body mass index is 56.01 kg/m . She was educated on lifestyle modifications including diet and exercise. Anxiety and depression 11/26/2023 Overview (09/12/2024): Takes sertraline. Dosing stable. Content on medication. Managed well. Assessment & Plan (10/07/2024 3:45 PM CDT): Trial reduce sertraline to 50 mg daily and monitor for recurrence of symptoms. This may be slowing her weight loss goals. Assessment & Plan (09/12/2024 11:51 AM CDT): Chronic and stable. Controlled. Continue sertraline. Vitamin D deficiency 11/26/2023 Atherosclerosis of aorta 11/26/2023 Lung nodule seen on imaging study 10/04/2023 Overview (10/05/2024): CT from September 2023 recommended 3-month follow-up to repeat. She did have a CT calcium score 1 month later which did not demonstrate pulmonary nodules but it was not actually evaluating for this. CT 09/2024 recommends 12 month follow up. Stable. Assessment & Plan (09/12/2024 11:29 AM CDT): Repeat CT scan to check lung nodules. Chronic gout involving toe o f left foot without tophus, unspecified cause 08/24/2023 Overview (09/12/2024): Last episode about 2 years ago. Now on allopurinol. No episodes since. Assessment & Plan (09/12/2024 11:51 AM CDT): Will check uric acid level. Suspect she will require this long-term. Continue allopurinol. Adenomatous polyp of transverse colon 04/18/2023 Assessment & Plan (04/18/2023 8:37 AM ENGINEER SOILS): 08/24/22 Colonoscopy - x7 sessile polyps cecum and transverse colon; biopsy tubular adenoma Primary insomnia 01/31/2023 Overview (09/12/2024): Takes ambien. Has been on it for years since in early . Assessment & Plan (09/12/2024 11:50 AM CDT): Discussed risks of Ambien after age 65. For now we will continue the medication but she is open to further discussions in the future. She is still struggling with her sleep. Stage 3b chronic kidney disease 01/31/2023 Overview (09/12/2024): GFR 38 in 09/2023. Assessment & Plan (09/12/2024 11:51 AM CDT): Ordered CMP to ensure stability. This should be checked every 6 months. Dyspnea on exertion 08/18/2022 Assessment & Plan (12/19/2024 11:28 AM CDT): I do not have an explanation for dyspnea. Pulmonary does not seem to have an overt cause and her CTA coronary does not show any evidence of significant coronary artery disease that would cause ischemia. I strongly suspect obesity hypoventilation syndrome. Assessment & Plan (11/30/2023 10:56 AM CDT): She had a CTA coronary that was negative for obstructive coronary artery disease, and she has mild coronary calcium. Her overall 10-year risk is 1.8% which is extremely low, and her risk of future cardiovascular events is low. She does not require any Statin therapy at htis time. She likely has obesity hyperventilation syndrome. Assessment & Plan (05/23/2023 9:23 AM ENGINEER SOILS): Echo from 08/3022 - reassuring CCTA ordered thru PCP Assessment & Plan (08/18/2022 1:57 PM ENGINEER SOILS): Recommend starting with an echocardiogram given her history of breast cancer. Can consider ischemic evaluation if echo is within normal limits. History of DVT (deep vein thrombosis) 08/18/2022 Overview (09/12/2024): Dx 2019. Has been on xarelto since that time. Assessment & Plan (12/19/2024 11:27 AM CDT): Continue anticoagulation. Assessment & Plan (09/12/2024 11:51 AM CDT): Stable. Will check CBC to ensure she is not anemic. Continue Xarelto. Assessment & Plan (11/30/2023 10:56 AM CDT): Continue anticoagulation with Xarelto. Assessment & Plan (05/23/2023 9:22 AM ENGINEER SOILS): Dx 2019 Xarelto Assessment & Plan (08/18/2022 1:59 PM ENGINEER SOILS): Continue anticoagulation. Essential (primary) hypertension 08/18/2022 Overview (09/12/2024): Takes candesartan and amlodipine. Also has edema so she also takes furosemide. Checks BP at home and about 120s/80s. Assessment & Plan (12/19/2024 11:28 AM CDT): Her blood pressure is elevated in the office today. She checks it at home and typically it is well-controlled. Continue Norvasc, candesartan. Assessment & Plan (09/12/2024 11:51 AM CDT): Chronic and controlled. Continue candesartan and amlodipine. CMP ordered. Assessment & Plan (11/30/2023 10:56 AM CDT): Blood pressure is mildly elevated but within acceptable range. Would continue Amlodipine and Candesartan. Encouraged home blood pressure monitoring. Assessment & Plan (05/23/2023 9:20 AM ENGINEER SOILS): Stable on current regimen Assessment & Plan (08/18/2022 2:00 PM ENGINEER SOILS): Continue antihypertensives. History of breast cancer 01/14/2019 Overview (09/12/2024): Right breast, metastasis to right axilla. ER pos. Follows with oncology, Dr. Mann with [facility]. Mammogram every year now. S/p 6 weeks radiation, lumpectomy and breast reduction. Resolved Problems Problem Noted Date Diagnosed Date Resolved Date Upper respiratory tract infe ction, unspecified type 08/22/2022 10/15/2022 Screening for colon cancer 07/24/2022 0 01/31/2023 Overview (07/24/2022): Added automatically from request for surgery [id number] Hemorrhoid 07/24/2022 01/31/2023 Overview (07/24/2022): Added automatically from request for surgery [id number] Encounters Date Type Department Care Team Description 01/07/2025 Telephone [facility] Medical [facility] Family Medicine [facility] [address] [facility] [address] [place] [address] Genie Heard MD Surgical Clearance 12/19/2024 10:30 AM CDT Office Visit [facility] [address] [place] [phone] Joana Goncalves MD Follow Up (Deep vein thrombosis ); Shortness Of Breath ; Hypertension; Tachycardia 12/19/2024 Travel 11/06/2024 Scan HEALTH INFO SRVCS Scanned, Doc Med Group from Last 3 Months Immunizations Immunization Administration Dates Next Due Arexvy Respiratory Syncytial Virus (RSV, adjuvanted) 0.5 mL, PF 05/08/2023 Flucelvax 6 Months+ (Prefilled Syringe) 03/30/20 20 Fluzone High Dose - >Age 65 (Prefilled Syringe) 04/18/2023 Influenza (Generic) 04/25/2019 MODERNA COVID-19 (12+) MRNA, LNP-S, PF, 100 MCG/ 0.5 ML DOSE 10/19/2020,09/21/2020 Pneumococcal (Prevnar 20) 05/08/2023 Tdap (Adacel) 07/07/2022 Family History Medical History Relation Comments Hypertension Brother 1 COPD Brother 2 Diabetes Father Cancer Maternal Aunt 1 breast Cancer Maternal Aunt 2 Breast cancer Heart Attack Maternal Grandfather Heart Attack Maternal Grandmother Arthritis Mother Miscarriages / Stillbirths Mother COPD Sister Relation Status Comments Brother 1 Brother 2 Alive Father Maternal Aunt 1 Maternal Aunt 2 Alive Maternal Grandfather Maternal Grandmother Mother Sister Alive Social History Tobacco Use Types Packs/Day Years Used Date Smoking Tobacco: Former Cigarettes 0.5 15 0 06/11/1999 - 06/11/2014 Passive Smoke Exposure: Past Smokeless Tobacco: Former Tobacco Cessation:Counseling Given: No Alcohol Use Standard Drinks/Week Comments Not Currently 0 (1 standard drink = 0.6 oz pur e alcohol) PHQ-2 Answer Date Recorded Patient Health Questionnaire-2 Score 0 09/12/2024 Comments No Sex and Gender Information Value Date Recorded Sex Assigned at Female 07/28/2024 11:08 AM ENGINEER SOILS Legal Sex Female 11:46 PM CDT Gender Identity Female 07/28/2024 11:08 AM ENGINEER SOILS Sexual Orientation Straight 07/28/2024 11 :08 AM ENGINEER SOILS Last Filed Vital Signs Vital Sign Reading Time Taken Comments Blood Pressure 146/90 12/19/2024 10:15 AM CDT Pulse 105 12/19/2024 10:15 AM CDT Temperature 36.6 C (97.9 F) 10/07/2024 11:48 AM CDT Respiratory Rate 16 07/28/2024 11:07 AM ENGINEER SOILS Oxygen Saturation 98% 12/19/2024 10:15 AM CDT Inhaled Oxygen Concentration - - Weight 153.3 kg (338 lb) 12/19/2024 10:15 AM CDT Height 167.6 cm (5' 6) 12/19/2024 10:15 AM CDT Body Mass Index 54.55 12/19/2024 10:15 AM CDT Plan of Treatment Upcoming Encounters Date Type Department Care Team (Late st Contact Info) Description 01/26/2025 9:50 AM CDT Office Visit [address] [address] Genie Heard MD [address] [place] [address] 03/17/2025 9:30 AM CDT Office Visit [address] [address] Genie Heard MD [address] [address] 03/17/2025 10:30 AM CDT Office Visit [address] [address] Genie Heard MD [address] [address] 06/26/2025 11:00 AM ENGINEER SOILS [facility] [address] [place] [phone] Jesika Echavarria PA [address] [facility], [address] [place] [address] Health Maintenance Due Date Last Done Comments ASCVD Statin 1960 Hepatitis C 1976 Zoster Vaccines (1 of 2) 2008 Annual Medicare Wellness Visit 2023 Dexa Scan (General) 2023 COVID-19 Vaccine ( season) 2024 10/19/2020, 09/21/2020 Colorectal Cancer Screening Colonoscopy (10 Years) 08/24/2025 08/24/2022, 08/24/2022 Mammogram Screening 02/05/2026 02/06/2024, 02/06/2024, 01/18/2023, Additional history exists DTaP, Tdap and Td Vaccines (2 - Td or Tdap) 07/07/2032 07/07/2022 Pneumococcal Vaccine: 50+ Years Completed 05/08/2023 RSV Immunization or 60+ Years Completed 05/08/2023 PHQ-2 (Physician Mclean) Completed 09/12/2024 Meningococcal B Vaccine Aged Out No l onger eligible based on patient's age to complete this topic Meningococcal Vaccine Aged Out No rohan pau eligible based on patient's age to complete this topic RSV Immunizations Under 20 Months Aged Out No longer eligible based on patient's age to complete this topic Medical Devices Implanted Type Area Vibrator Operator Device Identifier Shelf Expiration Date Model / Serial / Lot Knee Components Knee Components Right: Knee Procedures Procedure Name Priority Date/Time Associated Diagnosis Comments ELECTROCARDIOGRAM (NON MIDMARK ACQUIRED) Routine 12/19/2024 11:17 AM CDT Tachycardia MAMMOGRAM GENERIC (SCAN ORDER) 02/06/2024 COLONOSCOPY Routine 08/24/2022 8:44 AM CDT from Last 3 Months or Most Recently Relevant to Health Maintenance Results * ELECTROCARDIOGRAM (12/19/2024 11:17 AM CDT) 12/19/2024 11:1 7 AM CDT Narrative [facility] - 12/19/2024 4:37 PM CDT [facility] Test Date: 2024-12-19 Pat Name: SIOMARA IYER Department: 107 Room: Gender: Female Weight Training Instructor: monae : 1960 Requested By: JOANA GONCALVES Order Number: [id number] Reading MD: Joana Goncalves Measurements Intervals [place] Rate: 104 P: 48 WV: 154 QRS: 9 QRSD: 105 T: 41 QT: 337 QTc: 444 Interpretive Statements SINUS TACHYCARDIA ABNORMAL RHYTHM ECG COMPARED TO PREVIOUS TRACING Sinus tachycardia is present Procedure Note Joana Goncalves MD - 12/19/2024 Vanessa Mckeon, [facility] Test Date: 2024-12-19 Pat Name: SIOMARA VALDESGS Department: 107 Room: Gender: Female Weight Training Instructor: monae : 1960 Requested By: JOANA GONCALVES Order Number: [id number] [place] MD: Joana Goncalves Measurements Intervals [place] Rate: 104 P: 48 WV: 154 QRS: 9 QRSD: 105 T: 41 QT: 337 QTc: 444 Interpretive Statements SINUS TACHYCARDIA ABNORMAL RHYTHM ECG COMPARED TO PREVIOUS TRACING Sinus tachycardia is present Joana Goncalves MD PROCEDURES-ORDERABLE NO GIANNA RGE Final Result Performing Organization Address City/State/[facility] Co de Phone Number VANESSA MCKEON * MAMMOGRAM GENERIC (SCAN ORDER) (02/06/2024) Anatomical Region Laterality Modality Other 02/06/2024 us Doc [facility] Scanned SCANNING Final Resu lt from Last 3 Months or Most Recently Relevant to Health Maintenance Insurance [facility] Care Teams Jboss Developer Relationship Specialty Start Date End Date Genie Heard MD [address] [place] [address] PCP - General FAMILY PRACTICE 09/12/24 Lenore Soliz AUTO CLEANER- [address] [place] [address] OBGYN 07/08/22 Moncho Mann MD [address] [place] [phone] HEMATOLOGY/ONCOLOGY 07/08/22 Roxie Rowe MD [address] [place] [address] OBGYN 01/31/23
--- OUTSIDE RECORDS SUMMARY | 2025-01-10 08:42 | XMS_ITS | Encounter Summary ---
Author Organization [facility] Address [facility] [place] [address] Care Team Providers Care Product Development Assistant Name Role Phone Aline Sloiza [facility] Unavailable [phone] Moncho Mann MD Unavailable [phone] Mirela Garay [facility] Primary Care Provider + Roxie Rowe MD Unavailable [phone] Genie Heard MD Primary Care Provider + Encounter Details Date Type Department Care Team (Late st Contact Info) Description 08/24/2023 MyChart Message Enc [facility] Medical Group Family & Internal Medicine [facility] [address] [place] [address] Mirela Garay, [facility] [address] [facility], [address] [place] [address] CT scan Social History Tobacco Use Types Packs/Day Years [...] Sex Assigned at Female 07/28/2024 11:08 AM STRATEGY EXECUTION CONSULTANT Legal Sex Female 11:46 PM CDT Gender Identity Female 07/28/2024 11:08 AM STRATEGY EXECUTION CONSULTANT Sexual Orientation Straight 07/28/2024 11 :08 AM STRATEGY EXECUTION CONSULTANT documented as of this encounter Plan of Treatment Upcoming Encounters Date Type Department Care Team (Late st Contact Info) Description 01/26/2025 9:50 AM CDT Office Visit [address] [address] Genie Heard MD [address] [facility] [address] [place] [id number] 03/17/2025 9:30 AM CDT Office Visit [address] [address] Genie Heard MD [address] [address] 03/17/2025 10:30 AM CDT Office Visit [address] [address] Genie Heard MD [address] [phone] 06/26/2025 11:00 AM STRATEGY EXECUTION CONSULTANT Office Visit [facility] [address] [place] [phone] Jesika Echavarria PA [address] [facility], [address] [place] [address] documented as of this encounter Visit Diagnoses Not on filedocumented in this encounter Additional Health Concerns Assessment Noted Time PHQ-9 Depression Total Score: 2 10/06/19 23 1:21 PM CDT documented as of this encounter Care Teams Product Development Assistant Relationship Specialty Start Date End Date Mirela Garay, MENTAL HEALTH SOCIAL WORKER-BC [address] [facility], [facility] [address] [place], [place] [phone] PCP - General Nurse Practitioner Family 01/10/2308/10 Genie Heard MD [address] [place] [address] PCP - General FAMILY PRACTICE 09/12/24 Lenore Soliz [facility] [address] [place] [place] [address] OBGYN 07/08/22 Moncho Mann MD [address] [place] [address] HEMATOLOGY/ONCOLOGY 07/08/22 Roxie Rowe MD [address] [place] [address] OBGYN 01/31/23 documented as of this encounter
--- OUTSIDE RECORDS SUMMARY | 2025-01-10 08:42 | XMS_ITS | Encounter Summary ---
Author Organization [facility] Address [facility] [place] [address] Care Team Providers Care Mobile Battery Technician Name Role Phone Aline Soliza [facility] Unavailable [phone] Moncho Mann MD Unavailable [phone] Mirela Garay [facility] Primary Care Provider + Roxie Rowe MD Unavailable [phone] Genie Heard MD Primary Care Provider + Encounter Details Date Type Department Care Team (Late st Contact Info) Description 11/01/2023 MyChart Message Enc [facility] Medical Group Family & Internal Medicine [facility] [address] [place] [address] Mirela Garay, [facility] [address] [facility], [address] [place] [address] Copies Social History Tobacco Use Types Packs/Day Years [...] Sex Assigned at Female 07/28/2024 11:08 AM PARTS FACILITATOR Legal Sex Female 11:46 PM CDT Gender Identity Female 07/28/2024 11:08 AM PARTS FACILITATOR Sexual Orientation Straight 07/28/2024 11 :08 AM PARTS FACILITATOR documented as of this encounter Plan of Treatment Upcoming Encounters Date Type Department Care Team (Late st Contact Info) Description 01/26/2025 9:50 AM CDT Office Visit [address] [address] Genie Heard MD [address] [facility] [address] [place] [address] 03/17/2025 9:30 AM CDT Office Visit [address] [address] Genie Heard MD [address] [address] 03/17/2025 10:30 AM CDT Office Visit [address] [address] Genie Heard MD [address] [phone] 06/26/2025 11:00 AM PARTS FACILITATOR Office Visit [facility] [address] [place] [phone] Jesika Echavarria PA [address] [facility], [address] [place] [address] documented as of this encounter Visit Diagnoses Not on filedocumented in this encounter Additional Health Concerns Assessment Noted Time PHQ-9 Depression Total Score: 2 10/06/19 23 1:21 PM CDT documented as of this encounter Care Teams Mobile Battery Technician Relationship Specialty Start Date End Date Mirela Garay, ENTERPRISE INTEGRATION DEVELOPER-BC [address] [facility], [facility] [address] [place], [place] [phone] PCP - General Nurse Practitioner Family 01/10/2308/10 Genie Heard MD [address] [place] [address] PCP - General FAMILY PRACTICE 09/12/24 Lenore Soliz [facility]- [address] [place] [address] OBGYN 07/08/22 Moncho Mann MD [address] [place] [address] HEMATOLOGY/ONCOLOGY 07/08/22 Roxie Rowe MD [address] [place] [address] OBGYN 01/31/23 documented as of this encounter
--- OUTSIDE RECORDS SUMMARY | 2025-01-10 08:42 | XMS_ITS | Clinical Summary ---
Author Organization [facility] Address [address] [place] [address] Phone Care Team Providers Care Manager Sterile Processing Name Role Phone Mirela Garay AIR CHIPPER Primary Care Provider [phone] Allergies No known active allergies Medications Trelegy Ellipta 100-62.5-25 mcg inhaler Inhale 1 puff daily 12/05/2023 Active allopurinoL (ZYLOPRIM) 100 mg tablet Take 1 tablet (100 mg total) by mouth daily 08/24/2023 Active sgwxqpqi-guw-ae on-FA-vit K-lut (Centrum Silver Women) 8 mg iron-400 mcg-50 mcg tablet Active candesartan (ATACAND) 32 mg tablet Take 1 tablet (32 mg total) by mouth daily 08/03/2023 Active sertraline (ZOLOFT) 100 mg tablet Take 1 tablet (100 mg total) by mouth daily 05/01/2023 Active zolpidem (AMBIEN) 10 mg tablet TAKE 1/2 TO 1 TABLET BY MOUTH EVERY NIGHT AT BEDTIME FOR SLEEP 08/07/2021 Active trospium (SANCTURA) 20 mg tablet Take 1 tablet (20 mg total) by mouth 2 (two) times a day Active Xarelto 20 mg tablet Take 1 tablet (20 mg total) by mouth daily 06/13/2019 Active omeprazole OTC (PriLOSEC OTC) 20 mg EC tablet Take 1 tablet (20 mg total) by mouth daily Active cholecalciferol (VITAMIN D-3) 5,000 unit tablet Take 1 tablet (5,000 Units total) by mouth 3 (three) times a week Active amLODIPine (NORVASC) 5 mg tablet Take 1 tablet (5 mg total) by mouth daily 04/20/2023 Active furosemide (LASIX) 40 mg tablet Take 0.5 tablets (20 mg total) by mouth daily 05/04/2023 Active colchicine (COLCRYS) 0.6 mg tablet Take 1 tablet (0.6 mg total) by mouth daily as needed 11/26/2023 Active fluticasone furoate-vilante roL (Breo Ellipta) 100-25 mcg/dose diskus inhaler Inhale 1 puff daily Rinse mouth with water after use. Do not swallow. 60 each 11 01/01/2024 Active Active Problems Problem Noted Date Diagnosed Date Carcinoma of right breast metastatic to axillary lymph node 01/02/2024 Deep vein thrombosis (DVT) o f popliteal vein of left lower extremity, unspecified chronicity 01/02/2024 Morbid obesity with BMI of 50.0-59.9, adult 12/10 Stage 3a chronic kidney disease 01/02/2024 CASTANO (dyspnea on exertion) 01/01/2024 Family History Medical History Relation Name Comments COPD Brother Diabetes Father COPD Mother Breast cancer Mother's Sister COPD Sister Relation Name Status Comments Brother Father Mother Mother's Sister Sister Social History Tobacco Use Types Packs/Day Years Used Date Smoking Tobacco: Former Cigarettes Smokeless Tobacco: Never Tobacco Cessation:Counseling Given: Not Answered Personal Safety Answer Date Recorded Getting School Help Needed Not on file 08/25 Comments Unknown Sex and Gender Information Value Date Recorded Sex Assigned at Not on file Legal Sex Female 8:25 AM CDT Gender Identity Not on file Sexual Orientation Not on file Obstetrics History Plan of Treatment Health Maintenance Due Date Last Done Comments Colon Cancer Screening-Colonoscopy 1958 Depression Screening 1958 Fall Risk Assessment 1960 Hepatitis C Screening 1958 Osteoporosis Screening-Bone Density Scan 1958 Hepatitis B Screening 1976 Zoster Vaccine (1 of 2) 1977 Covid-19 Vaccine (3 - Modern a risk series) 11/16/2020 10/19/2020, 09/21/2020 Well Visit 65+ 2023 Breast Cancer Screening-Mammogram 01/19/2024 023 Influenza Vaccine (#1) 2025 3, 03/30/2020, 04/25/2019 DTaP/Tdap/Td Vaccine (2 - Td or Tdap) 07/07/2032 Pneumococcal vaccine 65+ Completed 05/08/[address] [address] [place] [address] [place] [address] MEDICARE ADVANTAGE Care Teams Manager Sterile Processing Relationship Specialty [place] [address] [address], [address] [place] [address] PCP - General Family Medicine 01/01/24
--- OUTSIDE RECORDS SUMMARY | 2025-01-10 08:42 | XMS_ITS | Encounter Summary ---
Author Organization [facility] Address [facility] [place] [address] Care Team Providers Care Jig And Fixture Maker Name Role Phone Aline Soliza [facility] Unavailable [phone] Moncho Mann MD Unavailable [phone] Mierla Garay [facility] Primary Care Provider + Roxie Rowe MD Unavailable [phone] Genie Heard MD Primary Care Provider + Encounter Details Date Type Department Care Team (Late st Contact Info) Description 01/22/2024 MyChart Message Enc [facility] Medical Group Family & Internal Medicine [facility] [address] [place] [address] Mirela Garay, [facility] [address] [facility], [address] [place] [address] Meds Social History Tobacco Use Types Packs/Day Years [...] Sex Assigned at Female 07/28/2024 11:08 AM AUTO DESIGN DETAILER Legal Sex Female 11:46 PM CDT Gender Identity Female 07/28/2024 11:08 AM AUTO DESIGN DETAILER Sexual Orientation Straight 07/28/2024 11 :08 AM AUTO DESIGN DETAILER documented as of this encounter Plan of Treatment Upcoming Encounters Date Type Department Care Team (Late st Contact Info) Description 01/26/2025 9:50 AM CDT Office Visit [address] [address] Genie Heard MD 7342 [facility] [address] [place] [address] 03/17/2025 9:30 AM CDT Office Visit [address] [address] Genie Heard MD [address] [address] 03/17/2025 10:30 AM CDT Office Visit [address] [address] Genie Heard MD [address] [id number] 06/26/2025 11:00 AM AUTO DESIGN DETAILER Office Visit [facility] [address] [place] [address] Jesika Echavarria PA [address] [facility], [address] [place] [address] documented as of this encounter Visit Diagnoses Not on filedocumented in this encounter Additional Health Concerns Assessment Noted Time PHQ-9 Depression Total Score: 2 10/06/19 23 1:21 PM CDT documented as of this encounter Care Teams Jig And Fixture Maker Relationship Specialty Start Date End Date Mirela Garay, [facility] [address] [facility] [address], [facility] [address] [place], [place] [id number] PCP - General Nurse Practitioner Family 01/10/2308/10 Genie Heard MD [address] [place] [address] PCP - General FAMILY PRACTICE 09/12/24 Lenore Soliz [facility] [address] [place] [address] OBGYN 07/08/22 Moncho Mann MD [address] [place] [address] HEMATOLOGY/ONCOLOGY 07/08/22 Roxie Rowe MD [address] [place] [address] OBGYN 01/31/23 documented as of this encounter
--- OUTSIDE RECORDS SUMMARY | 2025-01-10 08:42 | XMS_ITS | Encounter Summary ---
Author Organization [facility] Address [address] [place] [address] Phone Care Team Providers Care Cell Attendant Helper Name Role Phone Mirela Garay POSSUM TRAPPER Primary Care Provider [phone] Encounter Details Date Type Department Care Team (Latest Contact Info) Description 03/27/2023 Orders Only [facility] Scanning, Provider Social History Tobacco Use Types Packs/Day Years Used Date Smoking Tobacco: Never Assessed Comments Unknown Sex and Gender Information Value Date Recorded Sex Assigned at Not on file Legal Sex Female 8:25 AM CDT Gender Identity Not on file Sexual Orientation Not on file documented as of this encounter Plan of Treatment Not on file documented as of this encounter Procedures Procedure Name Priority Date/Time Associated Diagnosis Comments PULMONARY - RESULT SCAN 03/27/2023 documented in this encounter Results * PULMONARY - RESULT SCAN (03/27/2023) Anatomical Region Laterality Modality Other us Provider Scanning Final Result documented in this encounter Visit Diagnoses Not on filedocumented in this encounter Care Teams Cell Attendant Helper Relationship Specialty [place] [address] [address], [address] [place] [address] PCP - General Family Medicine 01/01/24 documented as of this encounter
--- OUTSIDE RECORDS SUMMARY | 2025-01-10 08:42 | XMS_ITS | Encounter Summary ---
Author Organization [facility] Address [facility] [place] [address] Care Team Providers Care Air Export Logistics Manager Name Role Phone Aline Soliza [facility] Unavailable [phone] Moncho Mann MD Unavailable [phone] Mirela Garay [facility] Primary Care Provider + Roxie Rowe MD Unavailable [phone] Genie Heard MD Primary Care Provider + Encounter Details Date Type Department Care Team (Late st Contact Info) Description 10/30/2023 MyChart Message Enc [facility] Medical Group Family & Internal Medicine [facility] [address] [place] [address] Mirela Garay, [facility] [address] [facility], [address] [place] [address] Scan Social History Tobacco Use [...] Sex Assigned at Female 07/28/2024 11:08 AM WELLNESS COORDINATOR Legal Sex Female 11:46 PM CDT Gender Identity Female 07/28/2024 11:08 AM WELLNESS COORDINATOR Sexual Orientation Straight 07/28/2024 11 :08 AM WELLNESS COORDINATOR documented as of this encounter Progress Notes * SABRINA Harvey - 10/31/2023 1:01 PM CDT The CTA is unlikely to see kidney cysts/nodules/masses as only a small portion of the kidney would be visualized or not at all. Looking at both of her recent scans, the small lung nodule in the rightupper lung is cut off on the CT calcium test, since that test is primarily looking at the heart andcoronary arteries. The remainder of the lung, that is visualized on the scan, does not show other nodules. * Neyda Jensen RN - 10/30/2023 1:53 PM CDT Please advise. documented in this encounter Plan of Treatment Upcoming Encounters Date Type Department Care Team (Late st Contact Info) Description 01/26/2025 9:50 AM CDT Office Visit [address] [address] Genie Heard MD [address] [place] [address] [address] 03/17/2025 9:30 AM CDT Office Visit [address] [address] Genie Heard MD [address] [address] 03/17/2025 10:30 AM CDT Office Visit [address] [address] Genie Heard MD 1833 [facility] [address] [place] [address] 06/26/2025 11:00 AM WELLNESS COORDINATOR [facility] [address] [place] [address] Jesika Echavarria PA 3 [facility], [address] [place] [address] documented as of this encounter Visit Diagnoses Not on filedocumented in this encounter Additional Health Concerns Assessment Noted Time PHQ-9 Depression Total Score: 2 10/06/19 23 1:21 PM CDT documented as of this encounter Care Teams Air Export Logistics Manager Relationship Specialty Start Date End Date Mirela Garay [facility] [address] [facility], [facility] [address] [place] [address] PCP - General Nurse Practitioner Family 01/10/2308/10 Genie Heard MD [address] [facility] [address] [place] [address] PCP - General FAMILY PRACTICE 09/12/24 Lenore Soliz [facility] [address] [employer] [address] [place] [address] OBGYN 07/08/22 Moncho Mann MD [address] [place] [address] HEMATOLOGY/ONCOLOGY 07/08/22 Roxie Rowe MD [address] [place] [address] OBGYN 01/31/23 documented as of this encounter
--- OUTSIDE RECORDS SUMMARY | 2025-01-10 08:42 | XMS_ITS | Referral Summary ---
Author Organization [facility] Address [address] [place] [address] Phone Care Team Providers Care Shop Router Name Role Phone Mirela Garay FISHING HAND Primary Care Provider [phone] Allergies No known active allergies Medications Trelegy Ellipta 100-62.5-25 mcg inhaler Inhale 1 puff daily 12/05/2023 Active allopurinoL (ZYLOPRIM) 100 mg tablet Take 1 tablet (100 mg total) by mouth daily 08/24/2023 Active huymamfg-lef-yo on-FA-vit K-lut (Centrum Silver Women) 8 mg [...] disease 01/02/2024 CASTANO (dyspnea on exertion) 01/01/2024 Social History Tobacco Use Types Packs/Day Years [...] on file Sexual Orientation Not on file Plan of Treatment Not on file Insurance [facility] MEDICARE Address: [facility] [address] [place] [address] [facility] MEDICARE ADVANTAGE [facility] MEDIC[facility] Address: [address] [address] Care Teams Shop Router Relationship Specialty [place] [address] [address], [address] [place] [address] PCP - General Family Medicine 01/01/24
--- OUTSIDE RECORDS SUMMARY | 2025-01-10 08:42 | XMS_ITS | Encounter Summary ---
Author Organization [facility] Address [facility] [place] [address] Care Team Providers Care Supervisor Shrimp Pond Name Role Phone Aline Soliza [facility] Unavailable [phone] Moncho Mann MD Unavailable [phone] Mirela Garay [facility] Primary Care Provider + Roxie Rwoe MD Unavailable [phone] Genie Heard MD Primary Care Provider + Encounter Details Date Type Department Care Team (Late st Contact Info) Description 05/07/2023 MyChart Message [facility] [address] [place] [address] Mirela Garay, [facility] [address] [facility], [address] [place] [address] Medicine Social History Tobacco Use [...] Sex Assigned at Female 07/28/2024 11:08 AM TICKET TAKER Legal Sex Female 11:46 PM CDT Gender Identity Female 07/28/2024 11:08 AM TICKET TAKER Sexual Orientation Straight 07/28/2024 11 :08 AM TICKET TAKER documented as of this encounter Progress Notes * Neyda Jensen RN - 05/07/2023 10:54 AM CST It appears from note on 04/18/2023 that patient should be taking the candesartan now-only the HCTZ was stopped. Please advise. ET TAKER documented in this encounter Plan of Treatment Upcoming Encounters Date Type Department Care Team (Late st Contact Info) Description 01/26/2025 9:50 AM CDT Office Visit [address] [address] Genie Heard MD [address] [address] 03/17/2025 9:30 AM CDT Office Visit [address] [address] Genie Heard MD [address] [address] 03/17/2025 10:30 AM CDT Office Visit [address] [address] Genie Heard MD [address] [address] 06/26/2025 11:00 AM TICKET TAKER Office Visit [facility] [address] [place] [address] Jesika Echavarria PA [address] [facility], [address] [place] [address] documented as of this encounter Visit Diagnoses Not on filedocumented in this encounter Additional Health Concerns Assessment Noted Time PHQ-9 Depression Total Score: 2 10/06/19 23 1:21 PM CDT documented as of this encounter Care Teams Supervisor Shrimp Pond Relationship Specialty Start Date End Date Mirela Garay, [facility] [address], [address] [place] [address] PCP - General Nurse Practitioner Family 01/10/2308/10 Genie Heard MD [address] [place] [address] PCP - General FAMILY PRACTICE 09/12/24 Lenore Soliz [facility] [address] [employer] [address] [place] [address] OBGYN 07/08/22 Moncho Mann MD [address] [place] [address] HEMATOLOGY/ONCOLOGY 07/08/22 Roxie Rowe MD [address] [place] [address] OBGYN 01/31/23 documented as of this encounter
--- OUTSIDE RECORDS SUMMARY | 2025-01-10 08:42 | XMS_ITS | Encounter Summary ---
Author Organization [facility] Address [facility] [place] [address] Care Team Providers Care Real Estate Portfolio Manager Name Role Phone Aline Soliza [facility] Unavailable [phone] Moncho Mann MD Unavailable [phone] Mirela Garay [facility] Primary Care Provider + Roxie Rowe MD Unavailable [phone] Genie Heard MD Primary Care Provider + Encounter Details Date Type Department Care Team (Late st Contact Info) Description 01/07/2024 MyChart Message Enc [facility] Medical Group Family [facility] [address] [place] [address] Mirela Garay, [facility] [address] [facility], [address] [place] [address] Xarelto Social History Tobacco Use Types Packs/Day Years [...] Sex Assigned at Female 07/28/2024 11:08 AM ROBOTICS SPECIALIST Legal Sex Female 11:46 PM CDT Gender Identity Female 07/28/2024 11:08 AM ROBOTICS SPECIALIST Sexual Orientation Straight 07/28/2024 11 :08 AM ROBOTICS SPECIALIST documented as of this encounter Progress Notes * SABRINA Harvey - 01/08/2024 2:49 PM CDT Noted. Thanks. * Neyda Jensen RN - 01/08/2024 10:51 AM CDT Spoke with pharmacist-she indicated Eliquis 5 mg BID #60 (1 month supply) would be approx $156. Will send message to pharmacist for assistance. Pharmacist did indicate patient is in her coverage gap so most of these will not be covered, or eligible for coupon use due to her being medicare. Will send message to [facility] pharmacist for assistance. * SABRINA Harvey - 01/08/2024 10:10 AM CDT Please see how much Eliquis may cost. 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 If this is notcheaper, maybe Xiomara will know if she could qualify for patient assistance through Xarelto or Eliquis manufacturers. She should not stop anticoagulation. * Neyda Jensen RN - 01/08/2024 9:42 AM CDT FYI advise? documented in this encounter Plan of Treatment Upcoming Encounters Date Type Department Care Team (Late st Contact Info) Description 01/26/2025 9:50 AM CDT Office Visit [facility] Medical Group Family Medicine - [place] [address] [facility] [address] [place] [address] Genie Heard MD [address] [facility] [address] [place] [address] 03/17/2025 9:30 AM CDT Office Visit [facility] Family [facility] - [address] [place] [address] Genie Heard MD [address] [facility] [address] [place] [address] 03/17/2025 10:30 AM CDT Office Visit [facility] - [address] [place] [address] Genie Heard MD [address] [address] 06/26/2025 11:00 AM ROBOTICS SPECIALIST [facility] [address] [place] [address] Jesika Echavarria PA 3 [facility], [address] [place] [address] documented as of this encounter Visit Diagnoses Not on filedocumented in this encounter Additional Health Concerns Assessment Noted Time PHQ-9 Depression Total Score: 2 10/06/19 23 1:21 PM CDT documented as of this encounter Care Teams Real Estate Portfolio Manager Relationship Specialty Start Date End Date Mirela Garay, OFFICE AUTOMATION TECHNICIAN- [address] [facility] [address], [address] [place] [address] PCP - General Nurse Practitioner Family 01/10/2308/10 Genie Heard MD [address] [facility] [address] [place] [address] PCP - General FAMILY PRACTICE 09/12/24 Lenore Soliz FNP- [address] [place] [address] OBGYN 07/08/22 Moncho Mann MD [address] [place] [address] HEMATOLOGY/ONCOLOGY 07/08/22 Roxie Rowe MD [address] [place] [address] OBGYN 01/31/23 documented as of this encounter
--- OUTSIDE RECORDS SUMMARY | 2025-01-10 08:42 | XMS_ITS | Encounter Summary ---
Author Organization [facility] Address [facility] [place] [address] Care Team Providers Care Biodiesel Engineering Manager Name Role Phone Yi Soliznna [facility] Unavailable [phone] Moncho Mann MD Unavailable [phone] Mirela Garay [facility] Primary Care Provider + Roxie Rowe MD Unavailable [phone] Genie Heard MD Primary Care Provider + Encounter Details Date Type Department Care Team (Late st Contact Info) Description 01/23/2024 MyChart Message Enc [facility] Medical Group Family & Internal Medicine [address] [address] Mychart, [facility] Provider quita Social History Tobacco Use Types Packs/Day Years [...] Sex Assigned at Female 07/28/2024 11:08 AM SIDE PANEL HANGER Legal Sex Female 11:46 PM CDT Gender Identity Female 07/28/2024 11:08 AM SIDE PANEL HANGER Sexual Orientation Straight 07/28/2024 11 :08 AM SIDE PANEL HANGER documented as of this encounter Plan of Treatment Upcoming Encounters Date Type Department Care Team (Late st Contact Info) Description 01/26/2025 9:50 AM CDT Office Visit [facility] Family [address] [address] Genie Heard MD [address] [address] 03/17/2025 9:30 AM CDT Office Visit [address] [address] Genie Heard MD [address] [address] 03/17/2025 10:30 AM CDT Office Visit [address] [address] Genie Heard MD [address] [address] 06/26/2025 11:00 AM SIDE PANEL HANGER Office Visit [facility] [address] [facility] [address] Jesika Echavarria PA 3 [facility], [address] [place] [address] documented as of this encounter Visit Diagnoses Not on filedocumented in this encounter Additional Health Concerns Assessment Noted Time PHQ-9 Depression Total Score: 2 10/06/19 23 1:21 PM CDT documented as of this encounter Care Teams Biodiesel Engineering Manager Relationship Specialty Start Date End Date Mirela Garay, PLATE DRILLER- [address] [facility], [facility] [address] [place] [address] PCP - General Nurse Practitioner Family 01/10/2308/10 Genie Heard MD [address] [place] [address] PCP - General FAMILY PRACTICE 09/12/24 Lenore Soliz FNP- [address] [employer] [place], [place] [id number] OBGYN 07/08/22 Moncho Mann MD [address] [place] [address] HEMATOLOGY/ONCOLOGY 07/08/22 Roxie Rowe MD [address] [place], [place] [address] OBGYN 01/31/23 documented as of this encounter
--- OUTSIDE RECORDS SUMMARY | 2025-01-10 08:42 | XMS_ITS | Clinical Summary ---
Author Organization [facility] Address [address] [facility] [place] [address] Care Team Providers Care Manager Of Hospital Name Role Phone Jostin Mir MD Primary Care Provider [phone] Source Comments [facility] Affiliates and Associated Physician Practices is amultiple site organization consisting of ambulatory clinics and hospital sitesin [place], [place], [place] and [place]. This disclosure is being madepursuant to the Care Everywhere program and may not contain all information available regarding this patient. Last updated 18.[facility] Social History Tobacco Use Types Packs/Day Years Used Date Smoking Tobacco: Never Assessed Comments Unknown Sex and Gender Information Value Date Recorded Sex Assigned at Not on file Legal Sex Female 6:14 AM BAND TACKER Gender Identity Not on file Sexual Orientation Not on file Plan of Treatment Health Maintenance Due Date Last Done Comments BONE DENSITY TESTING 1958 COLOGUARD (AGES 45-75) - COL ON CA SCREENING 1958 COLON MONITORING 1958 COLONOSCOPY - COLON CA SCREENING 1958 CT COLONOGRAPHY - COLON CA SCREENING 1958 Colorectal Cancer Screening 1958 FIT - COLON CA SCREENING 1958 FLEX SIG - COLON CA SCREENING 1958 LIPID TESTING 1958 HEPATITIS C SCREENING 03/21/1976 DTAP/TDAP/TD VACCINES (1 - Tdap) 1977 PNEUMOCOCCAL VACCINE 50+ (1 of 1 - PCV) 2008 ZOSTER VACCINE (1 of 2) 2008 MAMMOGRAM 11/12/2020 11/12/2018, 09/10/2018 COVID-19 VACCINE (1 - 2023-2 5 season) 2024 DEPRESSION SCREENING 06/11/2024 INFLUENZA VACCINE (#1) 2025 Respiratory Syncytial Virus (RSV) Vaccine Pt: or over 60 yrs (1 - 1-dose 75+ series) 2033 HEPATITIS B VACCINE Aged Out No longe r eligible based on patient's age to complete this topic HIB VACCINE Aged Out No longer eligi ble based on patient's age to complete this topic HPV VACCINE Aged Out No longer eligi ble based on patient's age to complete this topic MENINGOCOCCAL (Group B) VACCINE SHARED DECISION-MAKING Aged Out No longer eligible based on patient's age to complete this topic MENINGOCOCCAL GROUPS A/C/Y/W VACCINE Aged Out No longer eligible b ased on patient's age to complete this topic Insurance [facility] AET Care Teams Manager Of Hospital Relationship Specialty Start Date End Date Jostin Mir MD [address] [place] [address] [place] [id number] PCP - General Internal Medicine 11/25/18
--- OUTSIDE RECORDS SUMMARY | 2025-01-10 08:42 | XMS_ITS | Encounter Summary ---
Author Organization [facility] Address [facility] [place] [address] Care Team Providers Care Bench Press Operator Name Role Phone Aline Soliza [facility] Unavailable [phone] Moncho Mann MD Unavailable [phone] [facility] Primary Care Provider + Roxie Rowe MD Unavailable [phone] Genie Heard MD Primary Care Provider + Encounter Details Date Type Department Care Team (Late st Contact Info) Description 01/15/2024 MyChart Message Enc [facility] Family & Internal Medicine [facility] [address] [place] [address] Mirela Garay, [facility] [address] [facility], [address] [place] [address] Insurance Social History Tobacco Use Types Packs/Day Years [...] Sex Assigned at Female 07/28/2024 11:08 AM RESOURCE PROTECTION SPECIALIST Legal Sex Female 11:46 PM CDT Gender Identity Female 07/28/2024 11:08 AM RESOURCE PROTECTION SPECIALIST Sexual Orientation Straight 07/28/2024 11 :08 AM RESOURCE PROTECTION SPECIALIST documented as of this encounter Plan of Treatment Upcoming Encounters Date Type Department Care Team (Late st Contact Info) Description 01/26/2025 9:50 AM CDT Office Visit [address] [address] Genie Heard MD [address] [facility] [address] [place] [id number] 03/17/2025 9:30 AM CDT Office Visit [address] [address] Genie Heard MD [address] [address] 03/17/2025 10:30 AM CDT Office Visit [address] [address] Genie Heard MD [address] [address] 06/26/2025 11:00 AM RESOURCE PROTECTION SPECIALIST Office Visit [facility] [address] [place] [address] Jesika Echavarria PA [address] [facility], [address] [place] [address] documented as of this encounter Visit Diagnoses Not on filedocumented in this encounter Additional Health Concerns Assessment Noted Time PHQ-9 Depression Total Score: 2 10/06/19 23 1:21 PM CDT documented as of this encounter Care Teams Bench Press Operator Relationship Specialty Start Date End Date Mirela Garay, SHOULDER JOINER-BC [address] [facility] [address] [address] [place], [place] [id number] PCP - General Nurse Practitioner Family 01/10/2308/10 Genie Heard MD [address] [place] [address] PCP - General FAMILY PRACTICE 09/12/24 Lenore Soliz [facility]- [address] [employer] [address] [place] [address] OBGYN 07/08/22 Moncho Mann MD [address] [employer] [address] [place] [address] HEMATOLOGY/ONCOLOGY 07/08/22 Roxie Rowe MD [address] [employer] [address] [place] [address] OBGYN 01/31/23 documented as of this encounter
--- NOTE | 2025-01-10 08:48 | ED.URI ---
HPI - URI/Sore Throat General Chief Complaint: Upper Respiratory Infection Stated Complaint: bronchitis, sinus, ears Time Seen by Provider: 01/10/25 08:48 Source: patient Mode of arrival: ambulatory Limitations: no limitations History of Present Illness HPI Narrative: 64 yo F presents with c/o nasal congestion, sinus pressure, bilateral ear pressure, PND, harsh cough for 6 days. Cough causing throat to hurt. Afebrile. Reports prone to getting sinus infections and bronchitis. Not taking any OTC meds to treat symptoms. No CP or SOB. All systems reviewed and negative except as noted above. Related Data Home Medications ?Medication ?Instructions ?Recorded ?Confirmed ?Last Taken ?Type lqbvrdpg-ayq-ftyqy acid 0.4 1 tablet PO DAILY 05/03/19 07/14/24 Unknown History mg-lycopene 300 mcg-lutein 250 mcg tablet (Centrum Silver) cholecalciferol (vitamin D3) 125 125 mcg PO DAILY 02/27/22 07/14/24 Unknown History mcg (5,000 unit) capsule omeprazole 20 mg capsule,delayed 20 mg PO DAILY 02/27/22 07/14/24 Unknown History release furosemide 20 mg tablet 20 mg PO DAILY 10/19/22 07/14/24 Unknown History trospium 60 mg capsule,extended 60 mg PO DAILY 10/19/22 07/14/24 Unknown History release 24 hr zolpidem 10 mg tablet 10 mg PO HS 10/19/22 07/14/24 Unknown History Allergies Allergy/AdvReac Type Severity Reaction Status Date / Time No Known Allergies Allergy Verified 01/10/25 08:53 [facility], [facility] Past Medical History Medical History Left knee DJD Gout due to 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 Hallux rigidus of right foot Morbid obesity with BMI of 50.0-59.9, adult Plantar fasciitis of left foot Asthma Periodic health assessment, general screening, adult Migraine Vitamin D deficiency Pulmonary emboli History of DVT (deep vein thrombosis) Breast cancer Insomnia Sprain of left foot Obesity History of blood clots Hypertension Shortness of breath Vision abnormalities Peroneal tendonitis of left lower extremity Surgical History Surgical History History of carpal tunnel release History of knee surgery History of breast surgery Family History Family History Other Diabetes mellitus Family history of arthritis Family history of malignant neoplasm Hypertension Social History Social History Smoking packs per day: 0.75 Smoking cigarettes per day: 15.0 Years smoked: 50 Smoking pack-years: 37.50 Smoking status: Former smoker Tobacco type: cigarettes Smoking end date: 06/11/15 Alcohol intake: never Substance use: never Substance use type: does not use Living arrangements: alone Occupation/Education: occupation Gender identity (if verbalized by the patient): Female Spiritual care concerns: No Comments At time of signature, agree with nursing past medical, surgical, social and family history. There is no relevant family history pertinent to the presenting complaint. Exam Narrative: GENERAL: This is a well-nourished, well-developed patient, in no apparent distress. HEAD: normocephalic, atraumatic. EYES: PERRL. Sclera clear/white. Vision is grossly intact. EARS: External ears normal, auditory canals clear and without drainage, Fluid to bilateral TMs without or perforation. Hearing grossly intact. NOSE: External nose normal purulent nasal drainage, erythema to bilateral nares. Bilateral maxillary sinus tenderness on palpation. THROAT: Mucous membranes moist, Erythematous and purulent postnasal drainage. NECK: Neck supple, non-tender without lymphadenopathy, masses or thyromegaly. CARDIOVASCULAR: Regular rate and rhythm without murmurs, gallops, or rubs. RESPIRATORY: Clear to auscultation. Breath sounds equal bilaterally. No wheezes, rales, or rhonchi. SKIN: warm, Dry, intact with no suspicious lesions or rash, good texture and turgor. NEURO: awake, alert, and oriented to person, place and time. There were no obvious focal neurologic abnormalities. EXTREMITIES: No joint tenderness, effusion, or edema noted. Course Course Level of Care: Express Care Visit Vital Signs Vital signs: Reviewed MDM - URI/Sore Throat MDM Narrative Medical decision making narrative: patient is alert, nontoxic. Treat for bacterial sinusitis due to history of chronic sinusitis, duration of symptoms and exam findings. Patient agrees with plan of care. Lungs are clear auscultation. Differential Diagnosis Differential diagnosis: Likely upper respiratory infection, otitis media, sinusitis, viral infection, bronchitis and pharyngitis Discharge Plan Discharge Clinical Impression: Acute bacterial sinusitis Patient Disposition: Home Condition: Stable Instructions: Antibiotic Form, Sinusitis (ED) Additional Instructions: Take medications as prescribed. Take Tylenol every 6-8 hours as needed for pain and fever. Drink at least 64 oz of water daily. Follow-up with your doctor if symptoms are not improving. Patient Language: Swedish Prescriptions: New benzonatate 200 mg capsule 200 mg PO TID PRN (Reason: cough) Qty: 20 0RF amoxicillin-pot clavulanate 875-125 mg tablet 1 tablet PO Q12H 7 Days Qty: 14 0RF No Action omeprazole 20 mg capsule,delayed release(DR/EC) 20 mg PO DAILY cholecalciferol (vitamin D3) 125 mcg (5,000 unit) capsule 125 mcg PO DAILY Centrum Silver 0.4-300-250 mg-mcg-mcg Tablet 1 tablet PO DAILY furosemide 20 mg Tablet 20 mg PO DAILY zolpidem 10 mg tablet 10 mg PO HS trospium 60 mg capsule,extended release 24hr 60 mg PO DAILY Xarelto 20 mg tablet 20 mg PO DAILY Qty: 90 1RF Rx Instructions: Restart today, 10/26/2022. candesartan-hydrochlorothiazid 32-12.5 mg tablet 1 tablet PO DAILY Qty: 30 2RF sertraline 50 mg tablet 50 mg PO DAILY Qty: 30 2RF Follow-up/Referrals: UNKNOWN,DOCTOR [Primary Care Provider] - Time of Disposition: 09:03
[2025-01-10 08:52] VITALS: BP 143/98; PULSE 114; RESP 18; TEMP 36.6; O2SAT 97
== END 2025-01-10 09:08 | disposition home or self-care (01) ==
PROVIDERS: Emergency Provider Nurse Practitioner Family
DX: J01.90 Acute sinusitis, unspecified (principal); Z87.891 Personal history of nicotine dependence; I10 Essential (primary) hypertension; E66.01 Morbid (severe) obesity due to excess calories; Z68.43 Body mass index [BMI] 50.0-59.9, adult; E55.9 Vitamin D deficiency, unspecified; J45.909 Unspecified asthma, uncomplicated; M17.12 Unilateral primary osteoarthritis, left knee; M10.9 Gout, unspecified; Z85.3 Personal history of malignant neoplasm of breast; Z86.718 Personal history of other venous thrombosis and embolism; Z86.711 Personal history of pulmonary embolism
CPT/HCPCS: 99213; G0463

== ENCOUNTER 2025-03-09 09:08 | Outpatient (CLI) | payer MEDICARE, SELFPAY ==
--- OUTSIDE RECORDS SUMMARY | 2025-03-09 09:33 | XMS_ITS | Encounter Summary ---
Author Organization [facility] Address [address] [place] [address] Phone Care Team Providers Care Excelsior Picker Name Role Phone Mirela Garay FLASK CLEANER Primary Care Provider [phone] Encounter Details Date Type Department Care Team [...] on filedocumented in this encounter Care Teams Excelsior Picker Relationship Specialty [place] [address] [address] [place] [address] PCP - General Family Medicine 01/01/24 documented as of this encounter
--- OUTSIDE RECORDS SUMMARY | 2025-03-09 09:33 | XMS_ITS | Clinical Summary ---
Author Organization [facility] Address [address] [place] [address] Care Team Providers Care Extension Work Instructor Name Role Phone Unavailable Primary Care Provider [...] Encounters Date Type Department Care Team Description 02/24/2025 External Device Data STL ABSTRACTION Provider, Abstract 02/11/2025 External Device Data ST[facility] ABSTRACTION Provider, Abstract 01/20/2025 External Device Data ST[facility] ABSTRACTION Provider, Abstract 12/24/2024 External Device Data ST[facility] ABSTRACTION Provider, [...] 167.6 cm (5' 6) 08/16/2021 10:54 AM SCCM ADMINISTRATOR Body Mass Index 56.01 08/16/2021 10:54 AM SCCM ADMINISTRATOR Plan of Treatment Upcoming Encounters Date Type Department Care Team (Late st Contact Info) Description 03/23/2025 2:45 PM CDT Office Visit [facility] Oncology and Hematology - [place] [address] [place] [address] Moncho Mann MD [address] [facility] [address] [place] [address] Health Maintenance Due Date Last [...] series) 11/16/2020 10/19/2020, 09/21/2020 OSTEOPOROSIS SCREENING 2023 [place]) Preventative Visit/Annual Wellness Visit 06/11/2024 07/07/2022 INFLUENZA VACCINE (#1) 2025 04/18/2023, 2019 BREAST [...]
--- OUTSIDE RECORDS SUMMARY | 2025-03-09 09:33 | XMS_ITS | Encounter Summary ---
Author Organization [facility] Address [address] [place] [address] Care Team Providers Care Biofuels Technology Development Manager Name Role Phone Jostin Mir MD Primary Care Provider [phone] Encounter Details Date Type Department Care Team (Late Contact Info) Description 02/05/2019 Chart Note [facility] Radiation Therapy [address] [place] [address] [place] [address] [place] [address] Social History Tobacco Use Types [...] Description 03/23/2025 2:45 PM CDT Office Visit [facility] [place] Oncology and Hematology - [address] [facility] [address] [place] [address] Moncho Mann MD [address] [facility] [address] [place] [address] documented as of this encounter Visit Diagnoses Not on filedocumented in this encounter Care Teams Biofuels Technology Development Manager Relationship Specialty Start Date End Date Jostin Mir MD [address] [place] [phone] PCP - General Internal Medicine 11/06/18 03/13/23 documented as of this encounter
--- OUTSIDE RECORDS SUMMARY | 2025-03-09 09:33 | XMS_ITS | Clinical Summary ---
Author Organization [facility] Address [address] [facility] [place] [address] Care Team Providers Care Outpatient Phlebotomist Name Role Phone Jostin Mir MD Primary Care Provider [phone] [facility],non-[facility] Affiliates and Associated Physician Practices is amultiple site organization consisting of ambulatory clinics and hospital sitesin [place], [place], [place] and [place]. This disclosure is being madepursuant to the Care Everywhere program and may not contain all information available regarding this patient. Last updated 18.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 Gender Identity Not on file Sexual Orientation [...] of 2) 2008 MAMMOGRAM 11/12/2020 11/12/2018, 09/10/2018 DEPRESSION SCREENING 06/11/2024 COVID-19 VACCINE (1 - 2023-2 5 season) 2025 INFLUENZA VACCINE (#1) 2025 Respiratory Syncytial Virus [...] patient's age to complete this topic Insurance [facility] Address: [facility] [id number] [place] [phone] AET Care Teams Outpatient Phlebotomist Relationship Specialty Start Date End Date Jostin Mir MD [address] [place] [address] [place] [address] PCP - General Internal Medicine 11/25/18
--- OUTSIDE RECORDS SUMMARY | 2025-03-09 09:33 | XMS_ITS | Clinical Summary ---
Author Organization [facility] Address [address] [place] [address] Phone Care Team Providers Care Automotive Dismantler Name Role Phone Mirela Garay LICENSED CLINICAL SOCIAL WORKER Primary Care Provider [phone] Allergies No known active allergies Medications Trelegy Ellipta 100-62.5-25 mcg inhaler Inhale 1 puff daily 12/05/2023 Active allopurinoL (ZYLOPRIM) 100 mg tablet Take 1 tablet (100 mg total) by mouth daily 08/24/2023 Active wwxfvhyd-csa-ib on-FA-vit K-lut (Centrum Silver Women) 8 mg [...] 07/07/2032 Pneumococcal vaccine 65+ Completed 05/08/[address] [place] [address] [place] [address] [place] [address] [place] [address] MEDICARE ADVANTAGE Care Teams Automotive Dismantler Relationship Specialty [place] [address] [address], [address] [place] [address] PCP - General Family Medicine 01/01/24
[2025-03-09 09:35] LABS: Hematocrit 41.1 % (37.0-47.0); Hemoglobin 12.3 g/dL (12.0-15.0); Immature Granulocyte Percent A 0.5 % (0-0.5); Lymphocytes Absolute Auto 2.10 K/mm3 (0.9-3.2); Mean Corpuscular HGB Conc 29.9 g/dl (32-36); Mean Corpuscular Hemoglobin 25.2 pg (26-34); Mean Corpuscular Volume 84.2 fl (80-100); Nucleated Red Blood Cells Absolute Auto 0.000 K/mm3 (0.0-0.012); Nucleated Red Blood Cells Perc 0.0 % (0.0-0.2); Platelet Count Result 377 k/mm3 (150-375); Red Blood Count 4.88 M/mm3 (4.2-5.4); White Blood Count 8.8 K/mm3 (4.5-10.0)
[2025-03-09 09:42] LABS: Anisocytosis 1+; Hypochromasia 1+; Schistocytes None Seen
[2025-03-09 11:31] LABS: Alanine Aminotransferase 22 U/L (6-35); Albumin Level 4.1 g/dL (3.5-5.1); Alkaline Phosphatase 132 U/L (38-126); Anion Gap 10 mmol/L (4-12); Aspartate Amino Transferase 33 U/L (14-36); Bilirubin,Total 0.3 mg/dL (0.2-1.3); Blood Urea Nitrogen 13 mg/dL (7-17); Calcium 8.7 mg/dL (8.4-10.2); Carbon Dioxide 28 mmol/L (22-30); Chloride 104 mmol/L (98-107); Estimated Glomerular Filt Rate 59; Glucose 112 mg/dL (65-110); Potassium 4.7 mmol/L (3.4-5.0); Sodium 142 mmol/L (137-145); Total Protein 8.4 g/dL (6.3-8.2)
== END 2025-03-09 09:09 | disposition home or self-care (01) ==
LOC: ANHLAB 09:09
PROVIDERS: Visit Provider Internal Medicine Hematology & Oncology
DX: C50.411 Malignant neoplasm of upper-outer quadrant of right female breast (principal); Z17.0 Estrogen receptor positive status [ER+]
CPT/HCPCS: 36415; 80053; 85025; 86300